=== PATIENT | female | born 1935 | race Caucasian/White ===

== ENCOUNTER 2016-11-10 08:45 | Emergency (ER) | payer MEDICARE ==
[~2016-11-10 08:45] MED LIST: Sodium Chloride 0.9% 1,000 ML BAG ONE; Sodium Chloride 0.9% 100 ML BAG ONE
[2016-11-10 10:13] LABS: INR-International Normal Ratio 1.1; PTT 26.5 SEC (22.9-36.1); Prothrombin Time 14.7 SEC (12.0-14.7)
[2016-11-10 10:16] LABS: #Lymphocytes 0.6 thou/uL (1.20-3.40); #Monocytes 0.4 thou/uL (0.11-0.59); #Neutrophils 6.6 thou/uL (1.40-6.50); %Basophils 0.3 % (0.0-1.0); %Eosinophils 0.4 % (0.0-10.0); %Lymphocytes 8.4 % (21.0-51.0); Hemoglobin 8.4 g/dL (12.0-16.0); Mean Corpuscular HGB CONC 31.5 g/dL (32.0-36.0); Mean Corpuscular Hemoglobin 31.1 pg (27.0-31.0); Mean Corpuscular Volume 98.6 fl (81.0-99.0); Mean Platelet Volume 6.3 fL (7.4-10.4); Platelet Count 157 thou/uL (130-400); RBC Distribution Width 17.4 % (11.5-14.5); Red Blood Cell (RBC) Count 2.69 mill/uL (4.20-5.40); White Blood Cell (WBC) Count 7.7 thou/uL (4.8-10.8)
[2016-11-10 10:17] LABS: ALT (SGPT) 56 U/L (0-55); AST (SGOT) 27 U/L (5-34); Albumin 3.2 g/dL (3.4-4.8); Alkaline Phosphatase 57 U/L (40-150); Anion Gap 16 mmol/L (10-20); BUN (Urea Nitrogen) 29 mg/dL (9.8-20.1); Bilirubin, Total 0.6 mg/dL (0.2-1.2); Calc. Creatinine Clearance 0 mL/min (70-130); Carbon Dioxide 28 mmol/L (23-31); Chloride 103 mmol/L (98-107); Estimated GFR-MDRD 21; Globulin 2.7 g/dL (2.4-3.5); Glucose 192 mg/dL (83-110); Potassium 4.8 mmol/L (3.5-5.1); Protein, Total 5.9 g/dL (5.8-8.1); Sodium 142 mmol/L (136-145)
[2016-11-10 10:19] LABS: Blood, Urine Moderate (Negative); Clarity Cloudy (Clear); Glucose, Urine (Dipstick) Negative (Negative); Leukocyte Small (Negative); Nitrite Negative (Negative); Protein, Urine (Dipstick) 100 mg/dL (Neg-Trace); Urobilinogen 0.2 mg/dL (0.2-1.0); pH, Urine 5.5 (5.0-9.0)
[2016-11-10 10:23] LABS: CKMB 2.4 ng/mL (0-6.6); Troponin I Less than 0.010 ng/mL (< 0.028)
[2016-11-10 10:28] LABS: Bilirubin Small (Negative); Icto Negative (Negative); Specific Gravity, Urine 1.029 (1.002-1.036); Squamous Epithelial 0-3 HPF (0-3); Transitional Epithelial 0-3 HPF (0-3); WBC/HPF 21-50 HPF (0-3)
[2016-11-10 10:29] LABS: Bacteria/HPF 4+ HPF (None Seen); Renal Epithelial 0-3 HPF (0-3); Yeast-All Forms Rare HPF (None Seen)
[2016-11-10] MEDS ORDERED: cefTRIAXone\\ROCEPHIN 1 GM VIAL ONE (10:48)
--- NOTE | 2016-11-10 12:27 | ERRECORD ---
[facility] EMERGENCY RECORD HPI WEAK-DIZZY (09:14 LHOD) CHIEF COMPLAINT: Patient presents for evaluation of weakness. HISTORIAN: History provided by patient. TIME COURSE: PT SEEN BY ME HERE ON FOR WEAKNESS. FOUND TO BE ANEMIC, WITH RENAL INSUFFICIENCY. I TRANSFERRED HER TO [facility], WHERE SHE REPORTEDLY RECEIVED A UNIT OF BLOOD AND WAS TAKEN OFF HER ANTI-COAGULANTS. SHE APPEARS MUCH WORSE TODAY. HER DAUGHTER REPORTS SHE IS WORSE AND REQUESTS ADMISSION. ROS (09:16 LHOD) CONSTITUTIONAL: Historian reports fatigue, denies fever, reports weakness. CARDIOVASCULAR: Historian denies chest pain, reports dyspnea on exertion, reports edema. RESPIRATORY: Historian reports shortness of breath. GI: Historian denies abdominal pain, denies vomiting. GENITOURINARY FEMALE: Historian denies dysuria. SKIN: Historian denies rash. NEUROLOGIC: Historian denies headache, DIFFUSELY WEAK. HEMO/LYMPHATIC: Historian reports anemia. NOTES: All systems reviewed, negative except as described above. PAST MEDICAL HISTORY MEDICAL HISTORY: Flu vaccine up to date, Tetanus not up to date, Pneumococcal vaccine up to date, Past medical history includes cardiac history, coronary artery disease, Past medical history includes history of diabetes, Type II, Past medical history includes history of hypertension, which has been treated, Patient is compliant, Past medical history includes pulmonary disease, chronic obstructive pulmonary disease. verified 11/04. (08:58 SCHI) FEMALE SURGICAL HISTORY: Surgical history of appendectomy, Surgical history of carpal tunnel surgery- BILATERAL, Surgical history of cholecystectomy, Surgical history of hysterectomy, Surgical history of orthopedic surgery, LEFT KNEE REPLACEMENT. (08:58 SCHI) PSYCHIATRIC HISTORY: No previous psychiatric history, no history of suicidal ideations, No history of suicide attempts, Notes: DENIES. (08:58 SCHI) SOCIAL HISTORY: Patient is a former tobacco user, smoked cigarettes, Tobacco history notes: SMOKED FOR ABOUT 10 YEARS., Patient drinks every day, less than 5 drinks per day, Patient denies drug use,. (08:58 SCHI) FAMILY HISTORY: Family istory is not significant. (08:58 SCHI) NOTES: Nursing records reviewed. (09:20 LHOD) KNOWN ALLERGIES aspirin codeine sulfate &a-1R&a+25V*p+0X*z2708M*c202B*c15G*c2P*p-0X&a-25V&a+1R Name: Ethan Roach : 1935 F81 MedRec: [id number] AcctNum: [id number] Prepared: Rabia Nov 10, 2016 15:24 by Interface Page 1 of 4 pMD [facility] EMERGENCY RECORD CURRENT MEDICATIONS (08:56 SCHI) amiodarone: TABLET : Strength - 100 mg : ORAL Patient Dose: 200 mg Oral once a day. atorvastatin: TABLET : Strength - 40 mg : ORAL Patient Dose: 20 mg Oral once a day (at bedtime). citalopram: TABLET : Strength - 20 mg : ORAL Patient Dose: 20 mg Oral once a day. estradiol: TABLET : Strength - 0.5 mg : ORAL Patient Dose: 0.5 mg Oral once a day. furosemide: TABLET : Strength - 20 mg : ORAL Patient Dose: 2 tab(s) Oral once a day. Januvia: TABLET : Strength - 100 mg : ORAL Patient Dose: 50 mg Oral once a day. Lyrica: CAPSULE : Strength - 100 mg : ORAL Patient Dose: 50 mg Oral 2 times a day. metFORMIN: TABLET : Strength - 500 mg : ORAL Patient Dose: 2 tab(s) Oral 2 times a day. meTOPROLOL tartrate: TABLET : Strength - 50 mg : ORAL Patient Dose: 1 tab(s) Oral once a day. omeprazole: CAPSULE,DELAYED RELEASE (ENTERIC COATED) : Strength - 20 mg : ORAL Patient Dose: 1 tab(s) Oral once a day. potassium chloride: PACKET (EA) : Strength - 20 mEq : ORAL Patient Dose: 10 mEq Oral once a day. ramipril: CAPSULE : Strength - 10 mg : ORAL Patient Dose: 5 mg Oral once a day. VITAL SIGNS VITAL SIGNS: BP: 132/44, Pulse: 62, Resp: 16, Temp: 97.6 (Tympanic), Pain: 0, O2 sat: 95 on 3L Oxygen, Time: 11/10/2016 08:50. (08:50 SCHI) BP: 134/37, Pulse: 58, Resp: 18, Temp: 97.6 (Rectal), Pain: 0, O2 sat: 100 on Face mask, Time: 11/10/2016 09:49. (09:49 SCHI) BP: 116/40, Pulse: 57, Resp: 18, O2 sat: 96 on 4L Oxygen, Time: 11/10/2016 10:12. (10:12 SCHI) BP: 126/46, Pulse: 60, Resp: 18, Temp: 97.9, Pain: 0, O2 sat: 95 on 4, Time: 11/10/2016 11:08. (11:08 AWAT) PHYSICAL EXAM (09:17 LHOD) &a-1R&a+25V*p+0X*p2660I*c202B*c15G*c2P*p-0X&a-25V&a+1R Name: Ethan Roach : 1935 F81 MedRec: [id number] AcctNum: [id number] Prepared: Rabia Nov 10, 2016 15:24 by Interface Page 2 of 4 pMD [facility] EMERGENCY RECORD CONSTITUTIONAL: Vital signs reviewed, Patient afebrile, Pulse normal, Blood pressure normal, Respiratory rate normal, AWAKE, BUT SOMNOLENT. KNOWS WHERE SHE IS , BUT DOESN'T KNOW DAY OR EXACT DATE WHEN SHE WAS DISCHARGED FROM [facility]. EYES: Pupils equally round and reactive to light, Extraocular muscles intact. ENT: Mouth exam included findings of, mucous membranes dry. RESPIRATORY CHEST: Wheezing present, Rales present. CARDIOVASCULAR: Cardiovascular exam included findings of heart rate regular rate and rhythm. ABDOMEN FEMALE: Abdominal exam included findings of abdomen nontender, Distension present. UPPER EXTREMITY: Upper extremity exam normal. LOWER EXTREMITY: Edema present, to bilateral lower extremities, pitting, +4. NEURO: Neuro exam findings include patient oriented to, person, place, Memory abnormal, poor recent, no focal motor deficits, DIFFUSELY WEAK. SKIN: no rash. EKG INTERPRETATION (09:32 LHOD) 12 LEAD EKG INTERPRETATION: 12 lead EKG interpreted by Emergency Department Physician at time of study, 12 lead EKG shows, sinus bradycardia, Rate (beats per minute): 59, with no ectopics, Compared with previous EKG from, 11/04/2016, UNCHANGED, T waves normal, [place] normal, RBBB. RADIOLOGYINTERPRETATION (09:33 LHOD) CHEST: Films of the chest show, cardiomegaly, severe congestive heart failure, Other findings: BIBASILAR INFILTRATES. MEDICATION ADMINISTRATION SUMMARY Drug Name: Rocephin intravenous, Dose Ordered: 1 g, Route: IV Push, Status: Given, Time: 10:53 11/10/2016, Drug Name: DuoNeb, Dose Ordered: 3 mL, Route: Nebulize, Status: Given, Time: 10:35 11/10/2016, Drug Name: sodium chloride 0.9 % intravenous, Dose Ordered: 100 mL/hr, Route: IV Fluid Infusion, Status: Given, Time: 09:50 11/10/2016, Drug Name: DuoNeb, Dose Ordered: 3 mL, Route: Nebulize, Status: Given, Time: 09:30 11/10/2016, Detailed record available in Medication Service section. DOCTOR NOTES (10:00 LHOD) TEXT: 1000--awaiting lab. 1015--AWAITING LAB. &a-1R&a+25V*p+0X*v1348D*c202B*c15G*c2P*p-0X&a-25V&a+1R Name: Ethan Roach : 1935 F81 MedRec: [id number] AcctNum: [id number] Prepared: Rabia Nov 10, 2016 15:24 by Interface Page 3 of 4 pMD [facility] EMERGENCY RECORD PROBLEM LIST No recorded problems DIAGNOSIS (10:47 LHOD) FINAL: PRIMARY: CONGESTIVE HEART FAILURE, ADDITIONAL: RENAL INSUFFICIENCY, UTI. PRESCRIPTION No recorded prescriptions DISPOSITION PATIENT: Disposition Type: Transfer, Disposition: Transfer to [facility], Condition: Guarded. (10:47 LHOD) Patient left the department. (11:19 AWAT) Martin: AWAT=CHAYO Comer, Kiel LHOD=MD Debi, Miguel STARR=CHAYO Salcido, Charis &a-1R&a+25V*p+0X*l3036G*c202B*c15G*c2P*p-0X&a-25V&a+1R Name: Ethan Roach : 1935 F81 MedRec: [id number] AcctNum: [id number] Prepared: Rabia Nov 10, 2016 15:24 by Interface Page 4 of 4 pMD MTDD
--- NOTE | 2016-11-10 12:30 | PICIS ---
[facility] EMERGENCY RECORD COMMUNICATIONS (09:34 LHOD) COMMUNICATIONS: Notes: 0930--DISCUSSED WITH DAUGHTER. PT APPEARS MUCH MORE ILL THIS TIME. DAUGHTER REPORTS HER MOTHER IS A DO NOT INTUBATE OR CPR, BUT REQUESTS TREATMENT. 1046--DISCUSSED WITH , [facility] EDMD ACCEPTS FOR TRANFSER. TRIAGE (FriNov 10, 2016 08:52 SCHI) TRIAGE NOTES: WEAKNESS, JUST OUT OF THE HOSPITAL 3 DAYS AGO. (FriNov 10, 2016 08:52 SCHI) PATIENT: NAME: Ethan Roach, AGE: 81, GENDER: female, : Cristine 1935, TIME OF GREET: FriNov 10, 2016 08:46, PREFERRED LANGUAGE: Lithuanian, ETHNICITY: Not or , ECODE BILLING MAP: [facility], SSN: [id number], Zip Code: [address], KG WEIGHT: 92.99, PHONE: , , , PERSON ID: [id number], PCP: MD Otero Grover. (FriNov 10, 2016 08:52 SCHI) COMPLAINT: WEAKNESS. (FriNov 10, 2016 08:52 SCHI) ADMISSION: URGENCY: 3 Urgent, ADMISSION SOURCE: Home, TRANSPORT: AMBULANCE - [facility], BED: ED -01. (FriNov 10, 2016 08:52 SCHI) ASSESSMENT: Assessment: ALERT AND ORIENTED X 4, SKIN WARM AND DRY RESP EVEN AND UNLABORED,. (08:58 SCHI) PAIN: No complaint of pain. (08:58 SCHI) SIRS SCORING: Heart Rate 55-109 (0), Temp range 96.8-101.1 (0), respiratory rate 12-24 (0), Mental Status altered: no (0), Infection or Suspected Infection: No. (08:58 SCHI) TRIAGE SCREENING: Patient denies suicidal ideation, Patient denies presence of domestic violence. (08:58 SCHI) PROVIDERS: TRIAGE NURSE: Charis Salcido RN. (FriNov 10, 2016 08:52 SCHI) VITAL SIGNS: BP 132/44, Pulse 62, Resp 16, Temp 97.6, (Tympanic), Pain 0, O2 Sat 95, on 3L Oxygen, Time 11/10/2016 08:50. (08:50 SCHI) PREVIOUS VISIT ALLERGIES: aspirin, codeine sulfate. (Rabia Nov 10, 2016 08:52 SCHI) aspirin, codeine sulfate. (08:58 SCHI) KNOWN ALLERGIES aspirin codeine sulfate CURRENT MEDICATIONS (08:56 SCHI) amiodarone: TABLET : Strength - 100 mg : ORAL Patient Dose: 200 mg Oral once a day. atorvastatin: TABLET : Strength - 40 mg : ORAL Patient Dose: 20 mg Oral once a day (at bedtime). citalopram: TABLET : Strength - 20 mg : ORAL Patient Dose: 20 mg Oral once a day. estradiol: &a-1R&a+25V*p+0X*a7769S*c202B*c15G*c2P*p-0X&a-25V&a+1R Name: Ethan Roach : 1935 F81 MedRec: [id number] AcctNum: [id number] Prepared: Rabia Nov 10, 2016 15:26 by Interface Page 1 of 14 pMD [facility] EMERGENCY RECORD TABLET : Strength - 0.5 mg : ORAL Patient Dose: 0.5 mg Oral once a day. furosemide: TABLET : Strength - 20 mg : ORAL Patient Dose: 2 tab(s) Oral once a day. Januvia: TABLET : Strength - 100 mg : ORAL Patient Dose: 50 mg Oral once a day. Lyrica: CAPSULE : Strength - 100 mg : ORAL Patient Dose: 50 mg Oral 2 times a day. metFORMIN: TABLET : Strength - 500 mg : ORAL Patient Dose: 2 tab(s) Oral 2 times a day. meTOPROLOL tartrate: TABLET : Strength - 50 mg : ORAL Patient Dose: 1 tab(s) Oral once a day. omeprazole: CAPSULE,DELAYED RELEASE (ENTERIC COATED) : Strength - 20 mg : ORAL Patient Dose: 1 tab(s) Oral once a day. potassium chloride: PACKET (EA) : Strength - 20 mEq : ORAL Patient Dose: 10 mEq Oral once a day. ramipril: CAPSULE : Strength - 10 mg : ORAL Patient Dose: 5 mg Oral once a day. VITAL SIGNS VITAL SIGNS: BP: 132/44, Pulse: 62, Resp: 16, Temp: 97.6 (Tympanic), Pain: 0, O2 sat: 95 on 3L Oxygen, Time: 11/10/2016 08:50. (08:50 SCHI) BP: 134/37, Pulse: 58, Resp: 18, Temp: 97.6 (Rectal), Pain: 0, O2 sat: 100 on Face mask, Time: 11/10/2016 09:49. (09:49 SCHI) BP: 116/40, Pulse: 57, Resp: 18, O2 sat: 96 on 4L Oxygen, Time: 11/10/2016 10:12. (10:12 SCHI) BP: 126/46, Pulse: 60, Resp: 18, Temp: 97.9, Pain: 0, O2 sat: 95 on 4, Time: 11/10/2016 11:08. (11:08 AWAT) NURSING ASSESSMENT: FALL RISK (09:53 SCHI) FALL RISK: Bed rest greater than 2 days (5), Use of level of consciousness altering agents with mentation or cognitive changes (3), Sensory deficits (1), Impaired mobility (3), Neurologic diagnosis (3), Elimination problems (3), Total score 18, Fall risk. HENDRICH II FALL RISK: altered elimination(1), Unable to rise without assistance during test(4), Total score 5. NURSING ASSESSMENT: FOCUSED (09:16 SCHI) CONSTITUTIONAL: Patient arrives, via stretcher, via Emergency &a-1R&a+25V*p+0X*m4736B*c202B*c15G*c2P*p-0X&a-25V&a+1R Name: Ethan Roach : 1935 F81 MedRec: [id number] AcctNum: [id number] Prepared: Rabia Nov 10, 2016 15:26 by Interface Page 2 of 14 pMD [facility] EMERGENCY RECORD Medical Services, Unsteady gait, Lift to cart, History obtained from patient, Patient appears, generally ill, Patient cooperative, Patient alert, Oriented to person, place and time, Skin warm, Skin dry, Skin normal in color, Mucous membranes pink, Mucous membranes, dry, Patient is well-groomed, Patient complains of WEAKNESS, SOME SOB, JUST RELEASED FROM HOSPITAL 3 DAYS AGO WITH GI BLEED, PT STATES THAT SHE HAS BEEN EATING BUT JUST TOO WEAK TO DO ANY THING ELSE. NON VERBAL PAIN: Non-verbal pain assessment findings include no non-verbal complaints at rest (0), no non-verbal complaints with movement, no facial grimaces at rest (0), no facial grimaces with movement (0), no bracing at rest (0), no bracing with movement (0), no restlessness at rest (0), no restlessness with movement (0), no rubbing at rest (0), no rubbing with movement (0), no vocal complaints at rest (0), no vocal complaints with movement (0), Result: 0. EYES: Focused eye assessment finding include pupils equally round and reactive to light. NEURO: Focused neuro assessment findings include patient alert, cooperative, No facial droop noted, Speech coherent. GCS: Eye opening: (4) - Spontaneous, Verbal: (5) - Oriented/conversive, Motor: (6) - Obeys commands/Spontaneous. RESPIRATORY: Focused respiratory assessment findings include breath sounds clear, Breath sounds diminished. ABDOMEN: Focused abdominal assessment findings include abdomen soft, non tender. GENITOURINARY FEMALE: Focused genitourinary assessment not applicable. MUSCULOSKELETAL: Focused musculoskeletal assessment findings include normal range of motion, Notes: GENERAL WEAKNESS. LACERATION: Focused laceration assessment not applicable. NOTES: Emotional support needed and given, Patient tolerated procedure well. SAFETY: Side rails up, Cart/Stretcher in lowest position, Family at bedside, Hospital ID band on. NURSING ASSESSMENT: SKIN (09:51 SCHI) CONSTITUTIONAL: Patient arrives, via Emergency Medical Services, History obtained from patient, Patient appears, generally ill. SKIN: Skin assessment findings include skin warm, Skin dry, Skin normal in color, Notes: HAS DRESSINGS TO BOTH SIDES OF SACRAL AREA WITH OPEN AREAS JUST BELOW THAT ARE NOT CURRENTLY COVERED. NURSING PROCEDURE: INSPECTOR ALIGNING (09:16 SCHI) INSPECTOR ALIGNING: Patient placed on security monitor, Patient placed on non-invasive blood pressure monitor, Patient placed on continuous pulse oximetry, Adult/pediatric oxisensor applied. NURSING PROCEDURE: EKG CHART (09:47 SCHI) &a-1R&a+25V*p+0X*i5951R*c202B*c15G*c2P*p-0X&a-25V&a+1R Name: Ethan Roach Mary : 1935 F81 MedRec: [id number] AcctNum: [id number] Prepared: Rabia Nov 10, 2016 15:26 by Interface Page 3 of 14 pMD [facility] EMERGENCY RECORD PATIENT IDENTIFIER: Patient actively involved in identification process, Patient's identity verified by patient stating name, Patient's identity verified by patient stating date. EKG: EKG indicated for complaint of palpitations, 12 lead EKG performed on the left chest, done by VICENTE DOMINGO. NOTES: Emotional support needed and given, Patient tolerated procedure well. SAFETY: Side rails up, Cart/Stretcher in lowest position, Family at bedside, Hospital ID band on. NURSING PROCEDURE: IV (09:16 SCHI) PATIENT IDENITIFIER: Patient actively involved in identification process, Patient's identity verified by patient stating name, Patient's identity verified by patient stating date, Patient's identity verified by hospital ID bracelet. IV SITE 1: IV therapy indicated for hydration, IV therapy indicated for medication administration, IV established, to the left antecubital, using a 20 gauge catheter, in one attempt, IV site prepped with chloraprep, Saline lock established, Flushed with normal saline (mls): 10, Labs drawn at time of placement, labeled in the presence of the patient and sent to lab. NURSING PROCEDURE: NURSE NOTES (09:16 SCHI) NURSES NOTES: Warm blanket given to patient, Notes: PT PLACED IN GOWN. Notes: all times are approximate due to care being provided, then documented. NURSING PROCEDURE: OXYGEN THERAPY (09:19 SCHI) OXYGEN THERAPY: 4L oxygen given, NORMALLY ON 3 L AT HOME O2. NURSING PROCEDURE: RESPIRATORY INTERVENTIONS (09:47 SCHI) PATIENT IDENTIFIER: Patient actively involved in identification process, Patient's identity verified by patient stating name, Patient's identity verified by patient stating date, Patient's identity verified by hospital ID bracelet. RESPIRATORY INTERVENTIONS: Pre-intervention breath sounds diminished, Pre-intervention oxygen saturation 95%, single pulse oximetry reading, Patient given ALBUTEROL with ATROVENT, Single dose nebulizer. NOTES: Emotional support needed and given, Patient tolerated procedure well. NURSING PROCEDURE: TRANSFER (11:08 AWAT) TRANSFER: Reason for transfer need for specialized care, Diagnosis: CHF EXACERBATION, RENAL INSUFFICIENCY, Accepting institution: [facility] ER, Accepting physician: DR BRUNO, Referring physician: DEBI, Transported by urgent ambulance, accompanied by emergency medical services personnel, Report called to receiving &a-1R&a+25V*p+0X*m4157B*c202B*c15G*c2P*p-0X&a-25V&a+1R Name: Ethan Roach : 1935 F81 MedRec: [id number] AcctNum: [id number] Prepared: Rabia Nov 10, 2016 15:26 by Interface Page 4 of 14 pMD [facility] EMERGENCY RECORD facility, HUNTER Terrell RN, Provided opportunity to answer questions, Summary of Care printed, Copy of patient record prepared for receiving facility, Status of patient's valuables documented on chart, Medication reconciliation form prepared and sent to receiving facility, Patient consent for transfer signed, Family member contacted, DAUGHTER- FAYE. BELONGINGS: Belongings sent home with family member, name: FAYE, Notes: CLOTHES REMOVED & BAGGED UP, AND SENT WITH DAUGHTER. EQUIPMENT WITH PATIENT: Equipment with patient at time of transfer security monitor, Equipment with patient at time of transfer IV pump, Saline lock intact and patent at time of transfer. NOTES: Patient tolerated procedure well. SAFETY: Side rails up, Cart/Stretcher in lowest position, Family at bedside, Call light within reach, Hospital ID band on, Physician notified of above findings. VITAL SIGNS: BP: 126, / 46, Pulse: 60, Resp: 18, Temp: 97.9, Pain: 0, O2 sat: 95, on: 4, Time: 1108. NURSING PROCEDURE: URINE COLLECTION (09:47 SCHI) PATIENT IDENTIFIER: Patient actively involved in identification process, Patient's identity verified by patient stating name, Patient's identity verified by hospital ID bracelet, Patient's identity verified by family member. URINE COLLECTION FEMALE: Urine collection indicated to monitor output, Simple coto inserted, using a 16 fr pre-connected catheter, in one attempt, urine daphne in color, Specimen labeled in the presence of the patient and sent to lab. SAFETY: Side rails up, Cart/Stretcher in lowest position, Family at bedside, Hospital ID band on. ORDER DETAILS Order Name: B type Natriuretic Peptide, Status: Active, Time: 09:11 11/10/2016, User: JEAN-PAUL, - Ordered for: MD Carrera Lefayne, - Entered by: MD Carrera Lefayne - Rabia Nov 10, 2016 09:11, - Quantity: 1, Order Name: INSPECTOR ALIGNING ED, Status: Done, Time: 09:17 11/10/2016, User: MAK, - Ordered for: MD Carrera Lefayne, - Entered by: MD Carrera Lefayne - Rabia Nov 10, 2016 09:11, - Quantity: 1, Order Name: Cardiac Profile w/CKMB & Troponin - I, Status: Active, Time: 09:11 11/10/2016, User: JEAN-PAUL, - Ordered for: MD Carrera Lefayne, - Entered by: MD Carrera Lefayne - Rabia Nov 10, 2016 09:11, - Quantity: 1, Order Name: CBC with Differential, Status: Active, Time: 09:11 11/10/2016, User: JEAN-PAUL, - Ordered for: MD Carrera Lefayne, &a-1R&a+25V*p+0X*e2935H*c202B*c15G*c2P*p-0X&a-25V&a+1R Name: Ethan Roach : 1935 F81 MedRec: [id number] AcctNum: [id number] Prepared: Rabia Nov 10, 2016 15:26 by Interface Page 5 of 14 D [facility] EMERGENCY RECORD - Entered by: MD Carrera Lefayne - Rabia Nov 10, 2016 09:11, - Quantity: 1, Order Name: Comprehensive Metabolic Panel, Status: Active, Time: 09:11 11/10/2016, User: JEAN-PAUL, - Ordered for: MD Carrera Lefayne, - Entered by: MD Carrera Lefayne - Rabia Nov 10, 2016 09:11, - Quantity: 1, Order Name: Culture, Urine, Status: Active, Time: 10:40 11/10/2016, User: JEAN-PAUL, - Ordered for: MD Carrera Lefayne, - Entered by: MD Carrera Lefayne - Rabia Nov 10, 2016 10:40, - Quantity: 1, Order Name: EKG 12 Lead in Emergency Room, Status: Active, Time: 09:11 11/10/2016, User: JEAN-PAUL, - Ordered for: MD Carrera Lefayne, - Entered by: MD Carrera Lefayne - Sun Nov 10, 2016 09:11, - Quantity: 1, Order Name: ERRT * Smal Vol Neb Initial Trmt, Status: Active, Time: 09:11 11/10/2016, User: JEAN-PAUL, - Ordered for: MD Carrera Lefayne, - Entered by: MD Carrera Lefayne - Rabia Nov 10, 2016 09:11, - Quantity: 1, Order Name: ERRT Small Vol Neb Sub Trmt, Status: Active, Time: 10:28 11/10/2016, User: JEAN-PAUL, - Ordered for: MD Carrera Lefayne, - Entered by: MD Carrera Lefayne - Sun Nov 10, 2016 10:28, - Quantity: 1, Order Name: COTO CATHETER ED, Status: Done, Time: 09:47 11/10/2016, User: RO, - Ordered for: MD Carrera Lefayne, - Entered by: MD Carrera Lefayne - Raiba Nov 10, 2016 09:13, - Quantity: 1, Order Name: Protime with INR, Status: Active, Time: 09:11 11/10/2016, User: JEAN-PAUL, - Ordered for: MD Carrera Lefayne, - Entered by: MD Carrera Lefayne - Rabia Nov 10, 2016 09:11, - Quantity: 1, Order Name: PTT, Status: Active, Time: 09:11 11/10/2016, User: JEAN-PAUL, - Ordered for: MD Carrera Lefayne, - Entered by: MD Carrera Lefayne - Sun Nov 10, 2016 09:11, - Quantity: 1, Order Name: RECTAL TEMP ED, Status: Done, Time: 09:47 11/10/2016, User: RO, - Ordered for: MD Carrera Lefayne, - Entered by: MD Carrera Lefayne - Sun Nov 10, 2016 09:14, - Quantity: 1, Order Name: SALINE LOCK, Status: Done, Time: 09:17 11/10/2016, User: MAK, - Ordered for: MD Carrera Lefayne, - Entered by: MD Carrera Lefayne - Rabia Nov 10, 2016 09:11, &a-1R&a+25V*p+0X*j0535N*c202B*c15G*c2P*p-0X&a-25V&a+1R Name: Ethan Roach : 1935 F81 MedRec: [id number] AcctNum: [id number] Prepared: Rabia Nov 10, 2016 15:26 by Interface Page 6 of 14 pMD [facility] EMERGENCY RECORD - Quantity: 1, Order Name: Urinalysis with Microscopic, Status: Active, Time: 09:13 11/10/2016, User: JEAN-PAUL, - Ordered for: MD Carrera Lefayne, - Entered by: MD Carrera Lefayne - Rabia Nov 10, 2016 09:13, - Quantity: 1, Order Name: XR Chest 1 View Portable, Status: Active, Time: 09:11 11/10/2016, User: JEAN-PAUL, - Ordered for: MD Carrera Lefayne, - Entered by: MD Carrera Lefayne - Rabia Nov 10, 2016 09:11, - Quantity: 1. MEDICATION ADMINISTRATION SUMMARY Drug Name: Rocephin intravenous, Dose Ordered: 1 g, Route: IV Push, Status: Given, Time: 10:53 11/10/2016, Drug Name: DuoNeb, Dose Ordered: 3 mL, Route: Nebulize, Status: Given, Time: 10:35 11/10/2016, Drug Name: sodium chloride 0.9 % intravenous, Dose Ordered: 100 mL/hr, Route: IV Fluid Infusion, Status: Given, Time: 09:50 11/10/2016, Drug Name: DuoNeb, Dose Ordered: 3 mL, Route: Nebulize, Status: Given, Time: 09:30 11/10/2016, Detailed record available in Medication Service section. MEDICATION SERVICE DuoNeb: Order: DuoNeb (ipratropium bromide/albuterol sulfate) - Dose: 3 mL : Nebulize Ordered by: Miguel Carrera MD Entered by: MD Rabia Littlejohn Nov 10, 2016 09:12 , Acknowledged by: CHAYO Devries Nov 10, 2016 09:17 Documented as given by: CHAYO Mckenna Nov 10, 2016 09:30 Patient, Medication, Dose, Route and Time verified prior to administration. Site: Medication administered via Hand-held nebulizer, With oxygen. DuoNeb: Order: DuoNeb (ipratropium bromide/albuterol sulfate) - Dose: 3 mL : Nebulize Ordered by: Miguel Carrera MD Entered by: MD Rabia Littlejohn Nov 10, 2016 10:28 Documented as given by: CHAYO Devries Nov 10, 2016 10:35 Patient, Medication, Dose, Route and Time verified prior to administration. Amount given: 1 UNIT DOSE, Site: Medication administered via Hand-held nebulizer, With oxygen, Correct patient, time, route, dose and medication confirmed prior to administration, Patient advised of actions and side-effects prior to administration, Allergies confirmed and medications reviewed prior to administration, Administered by AW, Patient in position of comfort, Side rails up, Cart in lowest position, Family at bedside. Rocephin intravenous: Order: Rocephin intravenous (ceftriaxone sodium) - Dose: 1 g : IV Push &a-1R&a+25V*p+0X*p1902S*c202B*c15G*c2P*p-0X&a-25V&a+1R Name: Ethan Roach : 1935 F81 MedRec: [id number] AcctNum: [id number] Prepared: Rabia Nov 10, 2016 15:26 by Interface Page 7 of 14 pMD [facility] EMERGENCY RECORD Ordered by: Miguel Carrera MD Entered by: MD Rabia Littlejohn Nov 10, 2016 10:40 , Acknowledged by: CHAYO Devries Nov 10, 2016 10:48 Documented as given by: CHAYO Devries Nov 10, 2016 10:53 Patient, Medication, Dose, Route and Time verified prior to administration. Amount given: 1 GRAM, IV SITE #1 IVPB or drip, initial infusion, IVPB mixed in: 100ml, Fluid: 0.9NS, via secondary tubing, at 200 ml/hr, Catheter placement confirmed via flush prior to administration, IV site without signs or symptoms of infiltration during medication administration, No swelling during administration, No drainage during administration, IV flushed after administration, Correct patient, time, route, dose and medication confirmed prior to administration, Patient advised of actions and side-effects prior to administration, Allergies confirmed and medications reviewed prior to administration, Administered by AW, Patient in position of comfort, Side rails up, Cart in lowest position, Family at bedside. : Follow Up : Response assessment performed, No signs or symptoms of allergic reaction noted, Site inspection shows, No swelling at administration site, No drainage at administration site, No bleeding at site, No bruising noted at site, _IV SITE #1:_, Medication infusion continued upon transfer from emergency department, on [place] Nov 10, 2016 11:08, 15 minutes, ., Total amount infused: 50ML, Advised not to ambulate without assistance, Patient in position of comfort, Side rails up, Cart in lowest position, Family at bedside. (11:08 AWAT) sodium chloride 0.9 % intravenous: Order: sodium chloride 0.9 % intravenous (0.9 % sodium chloride) - Dose: 100 mL/hr : IV Fluid Infusion Ordered by: Miguel Carrera MD Entered by: Miguel Carrera MD [place] Nov 10, 2016 09:11 Documented as given by: Charis Salcido RN [place] Nov 10, 2016 09:50 Patient, Medication, Dose, Route and Time verified prior to administration. IV SITE #1 IV fluids established for hydration, IV SITE #1 into left antecubital, IV SITE #1 1st bag hung, amount 1 Liter hung, IV SITE #1 Rate of infusion (non-bolus) Infusing at 100 ml/hr, via primary tubing, Catheter placement confirmed via flush prior to administration, IV site without signs or symptoms of infiltration during medication administration, No swelling during administration, No drainage during administration, IV flushed after administration, Correct patient, time, route, dose and medication confirmed prior to administration, Patient advised of actions and side-effects prior to administration, Allergies confirmed and medications reviewed prior to administration. : Follow Up : Response assessment performed, No signs or symptoms of allergic reaction noted, Site inspection shows, No swelling at administration site, No drainage at administration site, No bleeding at site, No bruising noted at site, _IV SITE #1:_, IV fluid infusion continued upon transfer from emergency department, on &a-1R&a+25V*p+0X*m8411I*c202B*c15G*c2P*p-0X&a-25V&a+1R Name: Ethan Roach : 1935 F81 MedRec: [id number] AcctNum: [id number] Prepared: Rabia Nov 10, 2016 15:26 by Interface Page 8 of 14 pMD [facility] EMERGENCY RECORD [place] Nov 10, 2016 11:08, Total fluid hydration time IV site 1 1 hour, 20 minutes, ., Total amount infused: 110ML, Advised not to ambulate without assistance, Patient in position of comfort, Side rails up, Cart in lowest position, Family at bedside. (11:08 AWAT) HPI WEAK-DIZZY (09:14 LHOD) CHIEF COMPLAINT: Patient presents for evaluation of weakness. HISTORIAN: History provided by patient. TIME COURSE: PT SEEN BY ME HERE ON FOR WEAKNESS. FOUND TO BE ANEMIC, WITH RENAL INSUFFICIENCY. I TRANSFERRED HER TO [facility], WHERE SHE REPORTEDLY RECEIVED A UNIT OF BLOOD AND WAS TAKEN OFF HER ANTI-COAGULANTS. SHE APPEARS MUCH WORSE TODAY. HER DAUGHTER REPORTS SHE IS WORSE AND REQUESTS ADMISSION. ROS (09:16 LHOD) CONSTITUTIONAL: Historian reports fatigue, denies fever, reports weakness. CARDIOVASCULAR: Historian denies chest pain, reports dyspnea on exertion, reports edema. RESPIRATORY: Historian reports shortness of breath. GI: Historian denies abdominal pain, denies vomiting. GENITOURINARY FEMALE: Historian denies dysuria. SKIN: Historian denies rash. NEUROLOGIC: Historian denies headache, DIFFUSELY WEAK. HEMO/LYMPHATIC: Historian reports anemia. NOTES: All systems reviewed, negative except as described above. PAST MEDICAL HISTORY MEDICAL HISTORY: Flu vaccine up to date, Tetanus not up to date, Pneumococcal vaccine up to date, Past medical history includes cardiac history, coronary artery disease, Past medical history includes history of diabetes, Type II, Past medical history includes history of hypertension, which has been treated, Patient is compliant, Past medical history includes pulmonary disease, chronic obstructive pulmonary disease. verified 11/04. (08:58 SCHI) FEMALE SURGICAL HISTORY: Surgical history of appendectomy, Surgical history of carpal tunnel surgery- BILATERAL, Surgical history of cholecystectomy, Surgical history of hysterectomy, Surgical history of orthopedic surgery, LEFT KNEE REPLACEMENT. (08:58 SCHI) PSYCHIATRIC HISTORY: No previous psychiatric history, no history of suicidal ideations, No history of suicide attempts, Notes: DENIES. (08:58 SCHI) SOCIAL HISTORY: Patient is a former tobacco user, smoked cigarettes, Tobacco history notes: SMOKED FOR ABOUT 10 YEARS., Patient drinks every day, less than 5 drinks per day, Patient denies drug use,. (08:58 SCHI) FAMILY HISTORY: Family istory is not significant. (08:58 SCHI) NOTES: Nursing records reviewed. (09:20 LHOD) &a-1R&a+25V*p+0X*o4813X*c202B*c15G*c2P*p-0X&a-25V&a+1R Name: Ethan Roach : 1935 F81 MedRec: [id number] AcctNum: [id number] Prepared: Rabia Nov 10, 2016 15:26 by Interface Page 9 of 14 pMD [facility] EMERGENCY RECORD PHYSICAL EXAM (09:17 LHOD) CONSTITUTIONAL: Vital signs reviewed, Patient afebrile, Pulse normal, Blood pressure normal, Respiratory rate normal, AWAKE, BUT SOMNOLENT. KNOWS WHERE SHE IS , BUT DOESN'T KNOW DAY OR EXACT DATE WHEN SHE WAS DISCHARGED FROM [facility]. EYES: Pupils equally round and reactive to light, Extraocular muscles intact. ENT: Mouth exam included findings of, mucous membranes dry. RESPIRATORY CHEST: Wheezing present, Rales present. CARDIOVASCULAR: Cardiovascular exam included findings of heart rate regular rate and rhythm. ABDOMEN FEMALE: Abdominal exam included findings of abdomen nontender, Distension present. UPPER EXTREMITY: Upper extremity exam normal. LOWER EXTREMITY: Edema present, to bilateral lower extremities, pitting, +4. NEURO: Neuro exam findings include patient oriented to, person, place, Memory abnormal, poor recent, no focal motor deficits, DIFFUSELY WEAK. SKIN: no rash. LAB INTERPRETATION (10:18 LHOD) INTERPRETATION: I reviewed the lab results, CBC abnormal, Hemoglobin decreased, Hematocrit decreased, Chemistry abnormal, Glucose elevated, BUN elevated, Creatinine elevated, Cardiac enzymes abnormal, BNP elevated, PT normal, PTT normal, Urinalysis abnormal, positive for leukocytes. EVENTS TRANSFER: Triage to Emergency Main ED -01. (Rabia Nov 10, 2016 08:52 SCHI) Removed from Emergency Main ED -01. (11:19 AWAT) RADIOLOGYINTERPRETATION (09:33 LHOD) CHEST: Films of the chest show, cardiomegaly, severe congestive heart failure, Other findings: BIBASILAR INFILTRATES. EKG INTERPRETATION (09:32 LHOD) 12 LEAD EKG INTERPRETATION: 12 lead EKG interpreted by Emergency Department Physician at time of study, 12 lead EKG shows, sinus bradycardia, Rate (beats per minute): 59, with no ectopics, Compared with previous EKG from, 11/04/2016, UNCHANGED, T waves normal, Seco normal, RBBB. &a-1R&a+25V*p+0X*g1115M*c202B*c15G*c2P*p-0X&a-25V&a+1R Name: Ethan Roach : 1935 F81 MedRec: [id number] AcctNum: [id number] Prepared: Rabia Nov 10, 2016 15:26 by Interface Page 10 of 14 pMD [facility] EMERGENCY RECORD DOCTOR NOTES (10:00 LHOD) TEXT: 1000--awaiting lab. 1015--AWAITING LAB. PROBLEM LIST No recorded problems DIAGNOSIS (10:47 LHOD) FINAL: PRIMARY: CONGESTIVE HEART FAILURE, ADDITIONAL: RENAL INSUFFICIENCY, UTI. DISPOSITION PATIENT: Disposition Type: Transfer, Disposition: Transfer to [facility], Condition: Guarded. (10:47 LHOD) Patient left the department. (11:19 AWAT) PRESCRIPTION No recorded prescriptions IMAGING *EKG: Image captured from scanner. (09:54 SCHI) *MEMORANDUM OF TRANSFER: Image captured from scanner. (10:55 AWAT) EMS TRANSPORT ORDERS: Image captured from scanner. (10:55 AWAT) CONSENTS: Image captured from scanner. (10:55 AWAT) SBARU: Image captured from scanner. (11:15 AWAT) TRANSFER WORKSHEET: Image captured from scanner. (11:15 AWAT) Page 2 added. Image captured from scanner. (11:16 AWAT) *SUPPLY CHARGE SHEET: Image captured from scanner. (11:17 AWAT) ADMIN DIGITAL SIGNATURE: MD Debi, Miguel. (15:20 LHOD) CHAYO Salcido, Charis. (15:21 SCHI) RESULTS LABORATORY: CBC with Differential Collection DT: Rabia Nov 10, 2016 09:42, White Blood Cell (WBC) Count 7.7 thou/uL, Range (4.8-10.8), *Red Blood Cell (RBC) Count 2.69 - L mill/uL, Range (4.20-5.40), *Hemoglobin 8.4 - L g/dL, Range (12.0-16.0), *Hematocrit 26.5 - L %, Range (36.0-47.0), Mean Corpuscular Volume 98.6 fl, Range (81.0-99.0), *Mean Corpuscular Hemoglobin 31.1 - H pg, Range (27.0-31.0), *Mean Corpuscular HGB CONC 31.5 - L g/dL, Range (32.0-36.0), *RBC Distribution Width 17.4 - H %, Range (11.5-14.5), Platelet Count 157 thou/uL, Range (130-400), &a-1R&a+25V*p+0X*b2096U*c202B*c15G*c2P*p-0X&a-25V&a+1R Name: Ethan Roach : 1935 F81 MedRec: [id number] AcctNum: [id number] Prepared: Rabia Nov 10, 2016 15:26 by Interface Page 11 of 14 pMD [facility] EMERGENCY RECORD *Mean Platelet Volume 6.3 - L fL, Range (7.4-10.4), *%Neutrophils 86.0 - H %, Range (42.0-75.0), *%Lymphocytes 8.4 - L %, Range (21.0-51.0), %Monocytes 5.0 %, Range (0.0-10.0), %Eosinophils 0.4 %, Range (0.0-10.0), %Basophils 0.3 %, Range (0.0-1.0), *#Neutrophils 6.6 - H thou/uL, Range (1.40-6.50), *#Lymphocytes 0.6 - L thou/uL, Range (1.20-3.40), #Monocytes 0.4 thou/uL, Range (0.11-0.59), #Eosinphils 0.0 thou/uL, Range (0.0-0.7), #Basophils 0.0 thou/uL, Range (0.0-0.2). (10:18 LHOD) PTT Collection DT: [place]ta Nov 10, 2016 09:42, See comment below , Anticoagulant? NONE Medical Necessity SUSPECT COAGULOPATHY , PTT 26.5 SEC, Range (22.9-36.1). (10:18 LHOD) Protime with INR Collection DT: [place] Nov 10, 2016 09:42, See comment below , Anticoagulant? NONE Medical Necessity SUSPECT COAGULOPATHY , Prothrombin Time 14.7 SEC, Range (12.0-14.7), INR-International Normal Ratio 1.1 , ATTENTION: READ CAREFULLY , The, recommended therapeutic ranges for oral anticoagulant treatments are: , , Low Intensity: 1.5 - 2.0 Moderate Intensity: 2.0, - 3.0 High Intensity (1): 2.5 - 3.5 High, Intensity (2): 3.0 - 4.0 CRITICAL: >, 4.0 . (10:18 LHOD) Comprehensive Metabolic Panel Collection DT: [place] Nov 10, 2016 09:42, Sodium 142 mmol/L, Range (136-145), Potassium 4.8 mmol/L, Range (3.5-5.1), Chloride 103 mmol/L, Range (98-107), Carbon Dioxide 28 mmol/L, Range (23-31), Anion Gap 16 mmol/L, Range (10-20), *BUN (Urea Nitrogen) 29 - H mg/dL, Range (9.8-20.1), *Creatinine 2.19 - H mg/dL, Range (0.6-1.1), Estimated GFR-MDRD 21 , Reference Range for Estimated GFR: Greater than 90, mL/min/1.73 m2 NOTE: The MDRD equation has not been validated for use, with the elderly (over 70 years of age), women, patients with, serious comorbid condition or persons with extremes of &a-1R&a+25V*p+0X*l3769B*c202B*c15G*c2P*p-0X&a-25V&a+1R Name: Ethan Roach : 1935 F81 MedRec: [id number] AcctNum: [id number] Prepared: Rabia Nov 10, 2016 15:26 by Interface Page 12 of 14 pMD [facility] EMERGENCY RECORD body size, muscle, mass, or nutritional status. , *Glucose 192 - H mg/dL, Range (83-110), Calcium 8.0 mg/dL, Range (7.8-10.44), Bilirubin, Total 0.6 mg/dL, Range (0.2-1.2), Protein, Total 5.9 g/dL, Range (5.8-8.1), NOTE: Plasma values are generally 0.3 to 0.5 g/dL higher than serum values, due to the presence of fibrinogen. , *Albumin 3.2 - L g/dL, Range (3.4-4.8), Globulin 2.7 g/dL, Range (2.4-3.5), Alb/Glob Ratio 1.2 g/dL, Range (1.2-2.2), Alkaline Phosphatase 57 U/L, Range (40-150), AST (SGOT) 27 U/L, Range (5-34), *ALT (SGPT) 56 - H U/L, Range (0-55). (10:24 LHOD) B type Natriuretic Peptide Collection DT: Rabia Nov 10, 2016 09:42, *B type Natriuretic Peptide 535.0 - H pg/mL, Range (0-100). (10:28 LHOD) Cardiac Profile w/CKMB & TropI Collection DT: Rabia Nov 10, 2016 09:42, CKMB 2.4 ng/mL, Range (0-6.6), Troponin I Less than 0.010 ng/mL, Range (< 0.028), Reference Range , 0.00 - 0.028 ng/mL Negative 0.029 - 0.29 ng/mL , Indeterminate Greater or Equal to 0.3 ng/mL Strongly suggests CA , . (10:28 LHOD) Urinalysis with Microscopic Collection DT: Rabia Nov 10, 2016 10:27, Color Yellow , Range (Yellow), Clarity Cloudy , Range (Clear), Specific [place], Urine 1.029 , Range (1.002-1.036), pH, Urine 5.5 , Range (5.0-9.0), *Leukocyte Small - H , Range (Negative), Nitrite Negative , Range (Negative), *Protein, Urine (Dipstick) 100 - H mg/dL, Range (Neg-Trace), Glucose, Urine (Dipstick) Negative mg/dL, Range (Negative), Ketone, Urine Negative mg/dL, Range (Negative), Urobilinogen 0.2 mg/dL, Range (0.2-1.0), *Bilirubin Small - H , Range (Negative), CAUTION Urine, Bilirubin has a high incidence of false positive results due to urine color, interference. Interpret results in conjunction with other clinical, findings. , *Blood, Urine Moderate - H , Range (Negative), *RBC/HPF 11-20 - H HPF, Range (0-3), *WBC/HPF 21-50 - H HPF, Range (0-3), Squamous Epithelial 0-3 HPF, Range (0-3), Transitional Epithelial 0-3 HPF, Range (0-3), Renal Epithelial 0-3 HPF, Range (0-3), &a-1R&a+25V*p+0X*t7283B*c202B*c15G*c2P*p-0X&a-25V&a+1R Name: Ethan Roach : 1935 F81 MedRec: [id number] AcctNum: [id number] Prepared: Rabia Nov 10, 2016 15:26 by Interface Page 13 of 14 pMD [facility] EMERGENCY RECORD *Bacteria/HPF 4+ - H HPF, Range (None Seen), Yeast-All Forms Rare HPF, Range (None Seen). (10:39 LHOD) Martin: MAK=CHAYO Comer, Kiel LHOD=MD Debi, Miguel STARR=CHAYO Salcido, Slinda &a-1R&a+25V*p+0X*v7105I*c202B*c15G*c2P*p-0X&a-25V&a+1R Name: Ethan Roach : 1935 F81 MedRec: [id number] AcctNum: [id number] Prepared: Rabia Nov 10, 2016 15:26 by Interface Page 14 of 14 pMD MTDD
--- NOTE | 2016-11-10 14:13 | RAD ---
PORTABLE CHEST HISTORY: Dyspnea. COMPARISON: 11/04/2016 FINDINGS: Heart size is enlarged. Vessels are engorged with increased perihilar lung markings, rodriguez ggesting pulmonary edema type change. Bibasilar lung changes are present. This probably represents some associated effusion with atelectasis. Infiltrate is difficult to exclude. IMPRESSION Cardiomegaly with congestive heart failure type changes. POS: [facility]
== END 2016-11-10 11:08 | disposition short-term general hospital (02) ==
LOC: MADERS 08:45
DX: I11.0 Hypertensive heart disease with heart failure (principal); I50.9 Heart failure, unspecified; N28.9 Disorder of kidney and ureter, unspecified; N39.0 Urinary tract infection, site not specified; I25.10 Atherosclerotic heart disease of native coronary artery without angina pectoris; E11.9 Type 2 diabetes mellitus without complications; J44.9 Chronic obstructive pulmonary disease, unspecified; Z90.49 Acquired absence of other specified parts of digestive tract; Z90.710 Acquired absence of both cervix and uterus; Z87.891 Personal history of nicotine dependence; Z79.84 Long term (current) use of oral hypoglycemic drugs; Z79.899 Other long term (current) drug therapy
CPT/HCPCS: 36415; 51702; 71010; 80053; 81001; 82553; 83880; 84484; 85025; 85610; 85730; 87077; 87086; 87186; 93005; 94640; 96361; 96374; J0696; J7050; J7620

== ENCOUNTER 2016-12-01 10:40 | Emergency (ER) | payer MEDICARE ==
[2016-12-01 11:34] LABS: Prothrombin Time 13.8 SEC (12.0-14.7)
[2016-12-01 11:35] LABS: PTT 26.9 SEC (22.9-36.1)
--- NOTE | 2016-12-01 11:36 | CT ---
CT BRAIN: Date: 12/01/16 HISTORY: Stroke. TECHNIQUE: Noncontrast enhanced CT images of brain obtained from base of skull through the vertex. Brain and amelie ne windows obtained. FINDINGS: Noncontrast enhanced CT images of the brain are unremarkable. No evidence of acute intracranial mass es, hemorrhages, strokes, or contusions seen. Ventricles are of normal size. IMPRESSION: Normal CT brain, except for presence of some deep white matter ischemic changes. POS: [facility]
[2016-12-01 11:38] LABS: #Eosinphils 0.1 thou/uL (0.0-0.7); #Lymphocytes 0.7 thou/uL (1.20-3.40); #Monocytes 0.4 thou/uL (0.11-0.59); #Neutrophils 5.6 thou/uL (1.40-6.50); %Basophils 0.3 % (0.0-1.0); %Eosinophils 1.1 % (0.0-10.0); %Lymphocytes 10.6 % (21.0-51.0); %Monocytes 5.9 % (0.0-10.0); Hemoglobin 8.3 g/dL (12.0-16.0); Mean Corpuscular HGB CONC 32.4 g/dL (32.0-36.0); Mean Corpuscular Hemoglobin 31.6 pg (27.0-31.0); Mean Corpuscular Volume 97.5 fl (81.0-99.0); Mean Platelet Volume 7.9 fL (7.4-10.4); RBC Distribution Width 17.7 % (11.5-14.5); Red Blood Cell (RBC) Count 2.63 mill/uL (4.20-5.40); White Blood Cell (WBC) Count 6.9 thou/uL (4.8-10.8)
[2016-12-01 11:41] LABS: PLT Morphology Comment PLT clumps seen-ADEQ; Platelet Clumps MODERATE; Platelet Count 85 thou/uL (130-400); Platelet Satellitism SLIGHT
--- NOTE | 2016-12-01 11:49 | RAD ---
PORTABLE SUPINE CHEST: Date: 12/01/16 HISTORY: Mental status change. COMPARISON: 11/19/16. FINDINGS: There is cardiomegaly. Mild vascular engorgement. There is opacification of the left lung base obscu ring the left hemidiaphragm. Part of this is due to the cardiomegaly and poor exposure; however, I c annot exclude left basilar atelectasis and/or consolidation. There is also suggestion of associated left effusion obscuring the CP angle. Similar findings were noted previously. IMPRESSION: 1. Cardiomegaly and mild vascular engorgement. 2. Continued opacification of the left lung base as described above. POS: [facility]
[2016-12-01 11:53] LABS: CKMB 1.9 ng/mL (0-6.6); Troponin I 0.011 ng/mL (< 0.028)
[2016-12-01 11:57] LABS: ALT (SGPT) 139 U/L (0-55); AST (SGOT) 100 U/L (5-34); Albumin 3.3 g/dL (3.4-4.8); Alkaline Phosphatase 71 U/L (40-150); Anion Gap 21 mmol/L (10-20); BUN (Urea Nitrogen) 83 mg/dL (9.8-20.1); Bilirubin, Total 0.5 mg/dL (0.2-1.2); CK (CPK) 74 U/L (29-168); Calc. Creatinine Clearance 0 mL/min (70-130); Calcium 8.7 mg/dL (7.8-10.44); Carbon Dioxide 31 mmol/L (23-31); Chloride 91 mmol/L (98-107); Estimated GFR-MDRD 11; Globulin 2.6 g/dL (2.4-3.5); Glucose 137 mg/dL (83-110); Potassium 3.4 mmol/L (3.5-5.1); Protein, Total 5.9 g/dL (5.8-8.1); Sodium 140 mmol/L (136-145)
[2016-12-01 12:08] LABS: Blood, Urine Moderate (Negative); Clarity Cloudy (Clear); Glucose, Urine (Dipstick) Negative (Negative); Leukocyte Trace (Negative); Nitrite Negative (Negative); Protein, Urine (Dipstick) Negative (Neg-Trace); Urobilinogen 0.2 mg/dL (0.2-1.0)
[2016-12-01 12:13] LABS: Bacteria/HPF 4+ HPF (None Seen); Bilirubin Small (Negative); Squamous Epithelial 0-3 HPF (0-3); Transitional Epithelial 0-3 HPF (0-3)
[2016-12-01] MEDS ORDERED: Fluconazole 100 MG TAB ONE (13:22)
--- NOTE | 2016-12-01 13:48 | ERRECORD ---
[facility] EMERGENCY RECORD HPI CVA (11:47 LLDO) CHIEF COMPLAINT: Patient presents for evaluation of pt brought in from [place] by ems with extremely divergent stories from the ems and the staff of the [place]. when finally sorted out, it seemed the pt has been weak all over and maybe just a bit worse today. exam suggests weankess on both sides for the past week, at least. and i don't really find any localization of neuro sx. pt does not know the month or the city. HISTORIAN: History provided by patient, Additional history obtained from retirement, Additional history obtained from EMS. LOCATION: Symptoms are generalized. QUALITY: Patient is, oriented to person, responsive to verbal stimuli, Clifton coma score, Eye opening: (4) - Spontaneous, Verbal: (4) - Confused/disoriented, Motor: (6) - Obeys commands/Spontaneous, GCS Total: 14, denies pain. SEVERITY: Maximum severity of symptoms moderate, Currently symptoms are moderate. TIME COURSE: Patient unable to describe onset of symptoms, Symptoms are worsening, are constant. ASSOCIATED WITH: No associated symptoms, Denies any other complaints. EXACERBATED BY: Patient's condition exacerbated by nothing. RELIEVED BY: Patient's condition relieved by nothing. RISK FACTORS: Ischemic risk factors, Hemorrhagic risk factors, No subarachnoid hemorrhage risk factors. NIHSS: CVA assessment findings: Level of consciousness : not alert, but arousable by minor stimulation (1), Questions: answers one question correctly (1), Best gaze: partial gaze palsy (1), Motor Left Arm: drift, arm drifts down but does not hit bed or other support (1), Motor Right Arm: drift, arm drifts down but does not hit bed or other support (1), Motor left leg: no effort against gravity, leg falls to bed or support (3), Motor right leg: no effort against gravity, leg falls to bed or support (3), Total score 11. ACUTE STROKE PROTOCOL: Side and/or site verified, Patient identification confirmed, Sterile procedures observed, Verbal consent obtained, Onset of symptoms greater than 7 hours:, NIHSS score 11, Inclusion criteria: Patient's age 18 years or older, No clinical diagnosis of ischemic stroke with a measurable neurologic deficit, Time of symptom onset (when patient was last seen normal) Not well established as less than 3 hours before treatment would begin, Patient tolerated the procedure with difficulty, After procedure, patient is NOT eligible for tPA therapy, Patient is Not eligible for Interventional therapy. ROS CONSTITUTIONAL: Historian reports fatigue, reports &a-1R&a+25V*p+0X*a2674L*c202B*c15G*c2P*p-0X&a-25V&a+1R Name: Ethan Rocah : 1935 F81 MedRec: [id number] AcctNum: [id number] Prepared: Rabia Dec 01, 2016 14:17 by Interface Page 1 of 6 pMD [facility] EMERGENCY RECORD malaise, reports weakness. (12:07 LLDO) EYES: Negative eye review of systems, Historian denies eye pain, denies eye redness, denies eye discharge. (12:15 LLDO) ENT: Negative ears, nose, throat review of systems, Historian denies epistaxis, denies rhinorrhea, denies sinus pain, denies sore throat. (12:15 LLDO) CARDIOVASCULAR: Negative cardiovascular review of systems, Historian denies chest pain, no radiation, Historian denies diaphoresis, denies syncope. (12:15 LLDO) RESPIRATORY: Negative respiratory review of systems, Historian denies cough, denies shortness of breath, denies sputum. (12:15 LLDO) GI: Negative gastrointestinal review of systems, Historian denies abdominal pain, denies constipation, denies diarrhea, denies nausea, denies vomiting. (12:15 LLDO) GENITOURINARY FEMALE: Negative genitourinary review of systems, Historian denies dysuria, denies frequency, denies urgency. (12:15 LLDO) MUSCULOSKELETAL: ONLY IN HPI. (12:07 LLDO) SKIN: Negative skin review of systems, Historian denies cellulitis, denies rash, denies skin changes, denies skin lesions. (12:15 LLDO) NEUROLOGIC: Negative neurologic review of systems, Historian denies confusion, denies dizziness, denies focal weakness, denies mental status changes. (12:15 LLDO) HEMO/LYMPHATIC: Normal hematologic/lymphatic system review, Historian denies abnormal blood clotting, denies gum bleeding, denies petechiae. (12:15 LLDO) ALLERGIC/IMMUNOLOGIC: Normal allergy/immunologic system review, Historian denies eczema, denies environmental allergies, denies food allergies. (12:15 LLDO) PSYCHIATRIC: Negative psychiatric review of systems, Historian denies alcohol abuse, denies anxiety, denies depression, denies drug abuse, denies hallucinations. (12:15 LLDO) NOTES: All systems reviewed, negative except as described above. (12:07 LLDO) PAST MEDICAL HISTORY MEDICAL HISTORY: Flu vaccine up to date, Tetanus not up to date, Pneumococcal vaccine up to date, HX- CKD STAGE 3, CHF, WEAKNESS, COPD, DM I, HTN, CAD, A-FIB, HYPOMAGNESEMIA,. (12:55 AWAT) FEMALE SURGICAL HISTORY: Surgical history of appendectomy, Surgical history of carpal tunnel surgery- BILATERAL, Surgical history of cholecystectomy, Surgical history of hysterectomy, Surgical history of orthopedic surgery, LEFT KNEE REPLACEMENT. (12:55 AWAT) PSYCHIATRIC HISTORY: ANXIETY. (12:55 AWAT) SOCIAL HISTORY: Patient is a former tobacco user, smoked cigarettes, Tobacco history notes: SMOKED FOR ABOUT 10 YEARS., Patient drinks every day, less than 5 drinks per day, Patient denies &a-1R&a+25V*p+0X*a0856U*c202B*c15G*c2P*p-0X&a-25V&a+1R Name: Ethan Roach : 1935 F81 MedRec: [id number] AcctNum: [id number] Prepared: Rabia Dec 01, 2016 14:17 by Interface Page 2 of 6 pMD [facility] EMERGENCY RECORD drug use,. (12:55 AWAT) FAMILY HISTORY: Family istory is not significant. (12:55 AWAT) NOTES: Nursing records reviewed, Agree with nursing records, Medication list reviewed. (12:10 LLDO) KNOWN ALLERGIES aspirin codeine (Unconfirmed): Reaction: throat swelling codeine sulfate CURRENT MEDICATIONS atorvastatin: TABLET : Strength - 40 mg : ORAL Patient Dose: 20 mg Oral once a day (at bedtime). (12:14 JPER) furosemide: TABLET : Strength - 20 mg : ORAL Patient Dose: 2 tab(s) Oral once a day. (12:14 JPER) Lyrica: CAPSULE : Strength - 100 mg : ORAL Patient Dose: 50 mg Oral 2 times a day. (12:14 JPER) meTOPROLOL tartrate: TABLET : Strength - 50 mg : ORAL Patient Dose: 1 tab(s) Oral once a day. (12:14 JPER) Apresoline: TABLET : Strength - 10 mg : ORAL Patient Dose: 25 mg Oral 2 times a day (before meals). (12:15 JPER) CeleXA: TABLET : Strength - 20 mg : ORAL Patient Dose: once a day (in the morning). (12:15 JPER) omeprazole: CAPSULE,DELAYED RELEASE (ENTERIC COATED) : Strength - 20 mg : ORAL Patient Dose: once a day (in the morning). (12:15 JPER) DuoNeb: AMPUL FOR NEBULIZATION (ML) : Strength - 0.5 mg-3 mg (2.5 mg base)/3 mL : INHALATION Patient Dose: every 4 hours prn. (12:17 JPER) Iron (ferrous sulfate): TABLET : Strength - 325 mg (65 mg iron) : ORAL Patient Dose: mg Oral once a day (in the morning). (12:17 JPER) Miralax: POWDER (GRAM) : Strength - 17 gram/dose : ORAL Patient Dose: once a day (in the morning). (12:17 JPER) Spiriva with HandiHaler: CAPSULE, WITH INHALATION DEVICE : Strength - 18 mcg : INHALATION Patient Dose: once a day. (12:17 JPER) Tylenol Extra Strength: &a-1R&a+25V*p+0X*b8856G*c202B*c15G*c2P*p-0X&a-25V&a+1R Name: Trina Roachpilar Hernandez : 1935 F81 MedRec: [id number] AcctNum: [id number] Prepared: Rabia Dec 01, 2016 14:17 by Interface Page 3 of 6 pMD [facility] EMERGENCY RECORD TABLET : Strength - 500 mg : ORAL Patient Dose: 1 g every 6 hours. (12:17 JPER) HumaLOG: VIAL (ML) : Strength - 100 unit/mL : SUBCUTANEOUS Patient Dose: Unknown.SS. (12:17 JPER) Maalox: SUSPENSION, ORAL (FINAL DOSE FORM) : Strength - 200 mg-225 mg/5 mL : ORAL Patient Dose: 30 mL every 6 hours PRN. (12:19 JPER) Robitussin: LIQUID (ML) : Strength - 100 mg/5 mL : ORAL Patient Dose: 200 mg Oral every 6 hours PRN. (12:19 JPER) acetaZOLAMIDE: TABLET : Strength - 250 mg : ORAL Patient Dose: once a day (in the morning). (12:20 JPER) cefdinir: CAPSULE : Strength - 300 mg : ORAL Patient Dose: once a day (in the morning).X 4 DAYS. (12:21 JPER) Multaq: TABLET : Strength - 400 mg : ORAL Patient Dose: 2 times a day (with meals). (12:21 JPER) magnesium chloride: TABLET, DELAYED RELEASE (ENTERIC COATED) : Strength - 64 mg : ORAL Patient Dose: once a day (in the morning). (12:22 JPER) Januvia: TABLET : Strength - 50 mg : ORAL Patient Dose: once a day (in the morning). (12:23 JPER) estradiol: TABLET : Strength - 0.5 mg : ORAL Patient Dose: 0.5 mg Oral once a day. (12:24 JPER) VITAL SIGNS VITAL SIGNS: BP: 97/44, Pulse: 56, Resp: 18, Temp: 98.9 (Tympanic), Pain: 0, O2 sat: 99 on Non Rebreather, Time: 12/01/2016 10:42. (10:42 AWAT) BP: 99/55, Pulse: 55, Resp: 18, O2 sat: 97 on 2L Oxygen, Time: 12/01/2016 11:00. (11:00 AWAT) BP: 92/52, Pulse: 54, Resp: 16, Pain: 0, O2 sat: 96 on 2L Oxygen, Time: 12/01/2016 11:15. (11:15 AWAT) BP: 101/48, Pulse: 60, Resp: 18, Temp: 98.7 (Tympanic), Pain: 0, O2 sat: 96 on 2L Oxygen, Time: 12/01/2016 11:30. (11:30 AWAT) BP: 93/50, Pulse: 54, Resp: 18, Pain: 0, O2 sat: 93 on 2L Oxygen, Time: 12/01/2016 11:45. (11:45 AWAT) BP: 95/56, Pulse: 58, Resp: 16, Pain: 0, O2 sat: 94 on 2L Oxygen, Time: 12/01/2016 12:00. (12:00 AWAT) BP: 104/58, Pulse: 58, Resp: 17, Pain: 0, O2 sat: 94 on 2L Oxygen, Time: 12/01/2016 12:30. (12:30 AWAT) BP: 102/42, Pulse: 53, Resp: 16, Pain: 0, O2 sat: 95 on 2L Oxygen, Time: 12/01/2016 13:00. (13:00 AWAT) &a-1R&a+25V*p+0X*h6709G*c202B*c15G*c2P*p-0X&a-25V&a+1R Name: Ethan Roach : 1935 F81 MedRec: [id number] AcctNum: [id number] Prepared: Rabia Dec 01, 2016 14:17 by Interface Page 4 of 6 pMD [facility] EMERGENCY RECORD BP: 97/32, Pulse: 53, Resp: 17, Pain: 0, O2 sat: 94 on 2L Oxygen, Time: 12/01/2016 13:30. (13:30 AWAT) PHYSICAL EXAM CONSTITUTIONAL: Vital Signs Reviewed, Patient afebrile, Pulse normal, Blood pressure normal bilaterally, Respiratory rate normal, Patient appears, uncomfortable, Patient appears pain free, Patient alert and oriented to person, place and time, Nursing notes reviewed. (12:08 LLDO) HEAD: Head exam normal, Head exam included findings of head atraumatic, normocephalic. (12:15 LLDO) EYES: Eye exam normal, Eye exam included findings of eyelids normal to inspection, Pupils equally round and reactive to light, Extraocular muscles intact. (12:15 LLDO) ENT: ENT exam normal, Ear exam normal, Nose exam normal. (12:15 LLDO) NECK: Neck exam normal, Neck exam included findings of normal range of motion, Trachea midline, no meningeal signs, no tenderness. (12:15 LLDO) RESPIRATORY CHEST: Respiratory and chest exam normal, Respiratory exam included findings of, Chest exam included findings of chest movement symmetrical, Chest expansion equal. (12:15 LLDO) CARDIOVASCULAR: Cardiovascular assessment normal, Cardiovascular exam included findings of heart rate regular rate and rhythm, Heart sounds normal. (12:15 LLDO) ABDOMEN FEMALE: Abdominal exam normal, Abdominal exam included findings of abdomen nontender, Bowel sounds normal, no peritoneal signs. (12:15 LLDO) BACK: Back exam normal, Back exam included findings of normal inspection, range of motion normal. (12:15 LLDO) UPPER EXTREMITY: Upper extremity exam normal, Upper extremity exam included findings of inspection normal, Range of motion normal. (12:15 LLDO) LOWER EXTREMITY: Lower extremity exam normal, Lower extremity exam included findings of inspection normal, Range of motion normal. (12:15 LLDO) NEURO: Neuro exam findings include patient oriented to, person, place, Speech, slightly slurred but seems mostly from general weakness, Gait abnormal, unable to ambulate, not new, Clifton coma scale, Eye opening: (4) - Spontaneous, Verbal: (4) - Confused/disoriented, Motor: (6) - Obeys commands/Spontaneous, Memory abnormal, Cranial nerves intact, Deep tendon reflexes normal, no focal motor deficits, no focal sensory deficits, no cerebellar deficits, no nystagmus, IN HPI. (12:08 LLDO) SKIN: Skin exam normal, Skin exam included findings of skin warm, dry, and normal in color, no rash. (12:15 LLDO) PSYCHIATRIC: Psychiatric exam normal, Psychiatric exam included &a-1R&a+25V*p+0X*v0712K*c202B*c15G*c2P*p-0X&a-25V&a+1R Name: Ethan Roach : 1935 F81 MedRec: [id number] AcctNum: [id number] Prepared: Rabia Dec 01, 2016 14:17 by Interface Page 5 of 6 pMD [facility] EMERGENCY RECORD findings of patient oriented to person place and time, Normal affect. (12:15 LLDO) MEDICATION ADMINISTRATION SUMMARY Drug Name: Macrobid, Dose Ordered: 100 mg, Route: Oral, Status: Given, Time: 13:49 12/01/2016, Drug Name: Diflucan, Dose Ordered: 100 mg, Route: Oral, Status: Given, Time: 13:21 12/01/2016, Detailed record available in Medication Service section. DOCTOR NOTES (13:41 LLDO) TEXT: talked to pcp who suggested transfer d.t. host of complex problems. [facility]. PROBLEM LIST No recorded problems DIAGNOSIS (13:24 LLDO) FINAL: PRIMARY: Altered mental status, ADDITIONAL: ANEMIA UNSPECIFIED, CANDIDIASIS OF VULVA AND VAGINA, CHF, Chronic renal failure, MUSCLE WEAKNESS GENERALIZED, UTI SITE NOT SPECIFIED. PRESCRIPTION No recorded prescriptions DISPOSITION PATIENT: Disposition Type: Transfer, Disposition: Transfer to [facility]. (13:24 LLDO) Patient left the department. (14:10 AWAT) Martin: AWAT=CHAYO Comer, Kiel JPER=CHAYO Nguyen, Cathy LLDO=MD Claire, Desean &a-1R&a+25V*p+0X*n5965D*c202B*c15G*c2P*p-0X&a-25V&a+1R Name: Ethan Roach : 1935 F81 MedRec: [id number] AcctNum: [id number] Prepared: Rabia Dec 01, 2016 14:17 by Interface Page 6 of 6 pMD MTDD
[2016-12-01] MEDS ORDERED: Nitrofurantoin Monohyd/M-Cryst 100 MG CAP ONE (13:49)
--- NOTE | 2016-12-01 13:54 | PICIS ---
[facility] EMERGENCY RECORD COMMUNICATIONS (13:33 AWAT) COMMUNICATIONS: Notes: DR KAYE AT [facility] IN [place] ACCEPTS PT FOR TRANSFER AT THIS TIME. TRIAGE (FriDec 01, 2016 10:49 AWAT) TRIAGE NOTES: FROM NH WITH RIGHT SIDE WEAKNESS FOR PAST FEW DAYS PER NH,,,, LEFT SIDE WEAKNESS OF THIS AM PER EMS, UNKNOWN STORY TO BE EXACT... PT IS WEAK- BILATERALLY... NO UNILATERAL DEFICITS NOTED AT THIS TIME.... AMBIKA. (FriDec 01, 2016 10:49 AWAT) PATIENT: NAME: Ethan Roach, AGE: 81, GENDER: female, : Fri1935, TIME OF GREET: FriDec 01, 2016 10:41, PREFERRED LANGUAGE: Greenlandic, ETHNICITY: Not or , ECODE BILLING MAP: [facility], SSN: [id number], Zip Code: [address], KG WEIGHT: 99.79 (est.), PHONE: , , , PERSON ID: [id number]. (FriDec 01, 2016 10:49 AWAT) COMPLAINT: LT SIDE WEAKNESS. (FriDec 01, 2016 10:49 AWAT) ADMISSION: URGENCY: 3 Urgent, ADMISSION SOURCE: Group Home, TRANSPORT: AMBULANCE - [facility], BED: TRIAGE. (FriDec 01, 2016 10:49 AWAT) SIRS SCORING: Heart Rate 55-109 (0), Temp range 96.8-101.1 (0), respiratory rate 12-24 (0), UNKNOWN LABS & BASELINE MENTAL STATUS. (12:55 AWAT) TREATMENTS IN PROGRESS: Saline Lock, Site: LAC, Gauge: 18, IV: Other, See EMS Record, Patient on oxygen, via mask, Percent O2 =100. (12:55 AWAT) PROVIDERS: TRIAGE NURSE: Kiel Comer RN. (FriDec 01, 2016 10:49 AWAT) PREVIOUS VISIT ALLERGIES: aspirin, codeine sulfate. (FriDec 01, 2016 10:49 AWAT) aspirin, codeine sulfate. (12:55 AWAT) KNOWN ALLERGIES aspirin codeine (Unconfirmed): Reaction: throat swelling codeine sulfate CURRENT MEDICATIONS atorvastatin: TABLET : Strength - 40 mg : ORAL Patient Dose: 20 mg Oral once a day (at bedtime). (12:14 JPER) furosemide: TABLET : Strength - 20 mg : ORAL Patient Dose: 2 tab(s) Oral once a day. (12:14 JPER) Lyrica: CAPSULE : Strength - 100 mg : ORAL Patient Dose: 50 mg Oral 2 times a day. (12:14 JPER) meTOPROLOL tartrate: &a-1R&a+25V*p+0X*x4467V*c202B*c15G*c2P*p-0X&a-25V&a+1R Name: Ethan Roach : 1935 F81 MedRec: [id number] AcctNum: [id number] Prepared: Rabia Dec 01, 2016 14:23 by Interface Page 1 of 18 pMD [facility] EMERGENCY RECORD TABLET : Strength - 50 mg : ORAL Patient Dose: 1 tab(s) Oral once a day. (12:14 JPER) Apresoline: TABLET : Strength - 10 mg : ORAL Patient Dose: 25 mg Oral 2 times a day (before meals). (12:15 JPER) CeleXA: TABLET : Strength - 20 mg : ORAL Patient Dose: once a day (in the morning). (12:15 JPER) omeprazole: CAPSULE,DELAYED RELEASE (ENTERIC COATED) : Strength - 20 mg : ORAL Patient Dose: once a day (in the morning). (12:15 JPER) DuoNeb: AMPUL FOR NEBULIZATION (ML) : Strength - 0.5 mg-3 mg (2.5 mg base)/3 mL : INHALATION Patient Dose: every 4 hours prn. (12:17 JPER) Iron (ferrous sulfate): TABLET : Strength - 325 mg (65 mg iron) : ORAL Patient Dose: mg Oral once a day (in the morning). (12:17 JPER) Miralax: POWDER (GRAM) : Strength - 17 gram/dose : ORAL Patient Dose: once a day (in the morning). (12:17 JPER) Spiriva with HandiHaler: CAPSULE, WITH INHALATION DEVICE : Strength - 18 mcg : INHALATION Patient Dose: once a day. (12:17 JPER) Tylenol Extra Strength: TABLET : Strength - 500 mg : ORAL Patient Dose: 1 g every 6 hours. (12:17 JPER) HumaLOG: VIAL (ML) : Strength - 100 unit/mL : SUBCUTANEOUS Patient Dose: Unknown.SS. (12:17 JPER) Maalox: SUSPENSION, ORAL (FINAL DOSE FORM) : Strength - 200 mg-225 mg/5 mL : ORAL Patient Dose: 30 mL every 6 hours PRN. (12:19 JPER) Robitussin: LIQUID (ML) : Strength - 100 mg/5 mL : ORAL Patient Dose: 200 mg Oral every 6 hours PRN. (12:19 JPER) acetaZOLAMIDE: TABLET : Strength - 250 mg : ORAL Patient Dose: once a day (in the morning). (12:20 JPER) cefdinir: CAPSULE : Strength - 300 mg : ORAL Patient Dose: once a day (in the morning).X 4 DAYS. (12:21 JPER) Multaq: TABLET : Strength - 400 mg : ORAL Patient Dose: 2 times a day (with meals). (12:21 JPER) magnesium chloride: &a-1R&a+25V*p+0X*a0037E*c202B*c15G*c2P*p-0X&a-25V&a+1R Name: Ethan Roach : 1935 F81 MedRec: [id number] AcctNum: [id number] Prepared: Rabia Dec 01, 2016 14:23 by Interface Page 2 of 18 pMD [facility] EMERGENCY RECORD TABLET, DELAYED RELEASE (ENTERIC COATED) : Strength - 64 mg : ORAL Patient Dose: once a day (in the morning). (12: JPER) Januvia: TABLET : Strength - 50 mg : ORAL Patient Dose: once a day (in the morning). (12:23 JPER) estradiol: TABLET : Strength - 0.5 mg : ORAL Patient Dose: 0.5 mg Oral once a day. (12:24 JPER) VITAL SIGNS VITAL SIGNS: BP: 97/44, Pulse: 56, Resp: 18, Temp: 98.9 (Tympanic), Pain: 0, O2 sat: 99 on Non Rebreather, Time: 12/01/2016 10:42. (10:42 AWAT) BP: 99/55, Pulse: 55, Resp: 18, O2 sat: 97 on 2L Oxygen, Time: 12/01/2016 11:00. (11:00 AWAT) BP: 92/52, Pulse: 54, Resp: 16, Pain: 0, O2 sat: 96 on 2L Oxygen, Time: 12/01/2016 11:15. (11:15 AWAT) BP: 101/48, Pulse: 60, Resp: 18, Temp: 98.7 (Tympanic), Pain: 0, O2 sat: 96 on 2L Oxygen, Time: 12/01/2016 11:30. (11:30 AWAT) BP: 93/50, Pulse: 54, Resp: 18, Pain: 0, O2 sat: 93 on 2L Oxygen, Time: 12/01/2016 11:45. (11:45 AWAT) BP: 95/56, Pulse: 58, Resp: 16, Pain: 0, O2 sat: 94 on 2L Oxygen, Time: 12/01/2016 12:00. (12:00 AWAT) BP: 104/58, Pulse: 58, Resp: 17, Pain: 0, O2 sat: 94 on 2L Oxygen, Time: 12/01/2016 12:30. (12:30 AWAT) BP: 102/42, Pulse: 53, Resp: 16, Pain: 0, O2 sat: 95 on 2L Oxygen, Time: 12/01/2016 13:00. (13:00 AWAT) BP: 97/32, Pulse: 53, Resp: 17, Pain: 0, O2 sat: 94 on 2L Oxygen, Time: 12/01/2016 13:30. (13:30 AWAT) NURSING ASSESSMENT: CVA ASSESSMENT TOOL (10:49 AWAT) CONSTITUTIONAL: Complex assessment performed, Patient arrives, via Emergency Medical Services, History obtained from, Emergency Medical Services, intermediate record, Patient appears comfortable, Patient cooperative, Patient alert, Patient is, oriented to person, ORIENTED TO PERSON ONLY. SHE CAN TELL ME HER BIRTHDAY, BUT DISORIENTED TO PLACE, TIME, AND EVENT... SPEECH IS CLEAR, BUT PT APPEARS DROWSY & HAS GENERALIZED WEAKNESS..., Skin warm, Skin dry, Skin normal in color, Mucous membranes pink, Mucous membranes moist, Patient complains of LEFT SIDED WEAKNESS PER EMS, RIGHT SIDED WEAKNESS PER NH... PAIN: Patient rates pain as 0 out of 10, DENIES PAIN. CVA ASSESSMENT: CVA assessment findings include onset of symptoms were, Onset of symptoms: APPROX 1 WEEK AGO?, EMS SAYS MAYBE THIS AM PER THE WAY HE RECIEVED INFO.. I CALLED NH BACK, SPOKE WITH JOSH, AND SHE SAYS PT WAS LIKE THIS UPON HER ARRIVAL AT 0600 THIS AM, BUT HER SCRAP WORKER SAYS SHE HAS BEEN WEAK ALL WEEK. ABSOLUTE UNKNOWN TIME OF ONSET- PROBABLY X 1 WEEK..., Pupils equally round and reactive to light, Left pupil 3 mm in size, Right pupil 3 mm in size, Speech normal, Hand grasps equal, Foot press &a-1R&a+25V*p+0X*n8581I*c202B*c15G*c2P*p-0X&a-25V&a+1R Name: Ethan Roach : 1935 F81 MedRec: [id number] AcctNum: [id number] Prepared: Rabia Dec 01, 2016 14:23 by Interface Page 3 of 18 pMD [facility] EMERGENCY RECORD unequal, DOESNT EVEN PRESS WITH EITHER FOOT. APPARENTLY TOO WEAK TO COOPERATE., Upper extremity motor strength, weak on the left, weak on the right, BILATERALLY EQUAL WITH WEAKNESS, Lower extremity motor strength, moderately weak on the left, moderately weak on the right, CAN MOVE TOES ON COMMAND..., no facial numbness, no facial droop, no numbness to upper extremities, no numbness to lower extremities, Clifton coma scale:, Eye opening: (3) To speech, Verbal: (4) - Confused/disoriented, Motor: (6) - Obeys commands/Spontaneous, GCS Total: 13, Notes: DENIES VISUAL PROBLEMS. PT IS DROWSY & WILL OPEN EYES TO MAKE EYE CONTACT WITH ANY VERBAL STIMULI. NIHSS: CVA assessment findings: Level of consciousness : not alert, but arousable by minor stimulation (1), Questions: answers one question correctly (1), Commands: performs both tasks correctly (0), Best gaze: partial gaze palsy (1), Visual: no visual loss (0), Facial palsy: normal symmetrical movement (0), Motor Left Arm: drift, arm drifts down but does not hit bed or other support (1), Motor Right Arm: drift, arm drifts down but does not hit bed or other support (1), Motor left leg: no effort against gravity, leg falls to bed or support (3), Motor right leg: no effort against gravity, leg falls to bed or support (3), Amputation or joint fusion, Sensory: normal, no sensory loss (0), Best language: no aphasia; normal (0), Dysarthria: normal (0), Extinction and Inattention: normal (0), Total score 11. ACUTE STROKE PROTOCOL: Confirm time of onset or last seen normal 11/24/2016 - APPROX, Onset of symptoms is unknown, NIHSS score 11, Stroke team initiated at 12/01/2016 1047, Stroke team response at 12/01/2016 1047, Inclusion criteria: Patient's age 18 years or older, No clinical diagnosis of ischemic stroke with a measurable neurologic deficit, Time of symptom onset (when patient was last seen normal) Not well established as less than 180 minutes (3hours) before treatment would begin, Secondary Survey findings include: No evidence of intracranial hemorrhage on pretreatment evaluation, No recent (3 Months) craniotomy, spinal surgery, or serious head injury, No prior stroke diagnosed in recent 3 months, No history of intracranial hemorrhage, No recent (14 days) major trauma, surgery, delivery, organ biopsy, or puncture of a non compressible vessel, Recent (21 days) GI or bleeding or any other active bleeding, Not currently taking coumadin with PT > 15(PT and INR required), No seizure at onset of stroke, No intracranial neoplasm, arteriovenous malformation or aneurysm, No administration of heparin within 48 hours and elevated PTT at presentation (PTT required), No lumbar puncture in previous 7 days, Onset time greater than or equal to 3 hours, No uncontrolled hypertension at time of treatment (SBP>185 or DBP>110), No rapidly resolving symptoms, NIHSS score less than 22, Not within 14 days of major surgery, Recent gastrointestinal or urinary &a-1R&a+25V*p+0X*q8116F*c202B*c15G*c2P*p-0X&a-25V&a+1R Name: Ethan Roach : 1935 F81 MedRec: [id number] AcctNum: [id number] Prepared: Rabia Dec 01, 2016 14:23 by Interface Page 4 of 18 pMD [facility] EMERGENCY RECORD tract hemorrhage (within previous 21 days), No recent acute myocardial infarction (within previous 3 months), No post myocardial infarction pericarditis, No abnormal blood glucose level (<50 or >300 mg/dl {<2.8 or >22.2mmol/L}), Patient not , Notes: SEE PAPER FORMS FOR FINAL AFTER LAB RESULTS. NOTES: Emotional support needed and given, Patient tolerated procedure well. SAFETY: Side rails up, Cart/Stretcher in lowest position, Call light within reach, Hospital ID band on, Physician notified of above findings. NURSING ASSESSMENT: NEURO (11:00 AWAT) GCS: (6) Obeying command:, (4) Confused conversation:, (3) Eye opening in response to any speech, Result: 13. NIHSS: Total score 11. CONSTITUTIONAL: Complex assessment performed, Patient arrives, via [facility], History obtained from, Emergency Medical Services, intermediate record, Patient appears comfortable, Patient cooperative, Patient alert, Patient is, oriented to person, Skin warm, Skin dry, Skin normal in color, Mucous membranes pink, Mucous membranes moist, Patient complains of SEE TRIAGE NOTE. PAIN: Patient rates pain as 0 out of 10. NEURO: Pupils equally round and reactive to light, Left pupil 3 mm in size, Right pupil 3 mm in size, Able to close eyes, Face symmetrical, Speech normal, no visual changes, no facial droop, no facial numbness, no swelling, Hand grasps equal, Notes: CUSTODIAL REPORTS THAT THEIR SCRAP WORKER SAYS SHE HAS BEEN WEAK FOR APPROX 1 WEEK. THEY SAID THEY JUST NOTED HER SLUMPING TO HER LEFT WHILE SITTING UP THIS AM... UNKNOWN EXCACT TIME OF ONSET OF WEAKNESS, BUT CERTAINLY DOES NOT SHOW SIGNS OF ANY UNILATERAL WEAKNESS NOW. ENT: Ear assessment findings include ear normal to inspection, Nasal assessment findings include nose normal to inspection, Mouth and throat assessment findings include mouth inspection normal. NOTES: Patient tolerated procedure well. SAFETY: Side rails up, Cart/Stretcher in lowest position, Call light within reach, Hospital ID band on, Physician notified of above findings. NURSING PROCEDURE: BEDSIDE TESTING (11:21 JPER) PATIENT IDENTIFIER: Patient's identity verified by patient stating name, Patient's identity verified by hospital ID bracelet. GLUCOSE: Glucose testing indicated for WEAKNESS, Capillary blood sample, Result (mg/dl) 154, Machine number ED. FOLLOW-UP: After procedure, results given to Dr. BABIN. NURSING PROCEDURE: INTAKE AND OUTPUT (14:03 AWAT) INTAKE AND OUTPUT: Oral intake(ml): 110, IV intake(ml): 0, Total Intake (ml): 110ml, Urine output(ml): 1050, Emesis output(ml): 0, Total Output (ml): 1050ml, Grand Total: &a-1R&a+25V*p+0X*m4390C*c202B*c15G*c2P*p-0X&a-25V&a+1R Name: Ethan Roach : 1935 F81 MedRec: [id number] AcctNum: [id number] Prepared: Rabia Dec 01, 2016 14:23 by Interface Page 5 of 18 pMD [facility] EMERGENCY RECORD Output is greater than intake by 940mls, Notes: + 1 LARGE BM. SAFETY: Side rails up, Cart/Stretcher in lowest position, Family at bedside, Call light within reach, Hospital ID band on, Physician notified of above findings. NURSING PROCEDURE: IV (10:49 AWAT) PATIENT IDENITIFIER: Patient actively involved in identification process, Patient's identity verified by patient stating name, Patient's identity verified by EMS/police liaison. IV SITE 1: IV therapy indicated for POSSIBLE CVA, IV established, to the left antecubital, using an 18 gauge catheter, Saline lock established, Notes: PER EMS SALES AGENT PROTECTIVE SERVICE. SITE IS PATENT. FOLLOW-UP SITE 1: After procedure, sterile transparent dressing applied. NOTES: Notes: DONE PER EMS SALES AGENT PROTECTIVE SERVICE. SAFETY: Physician notified of above findings. NURSING PROCEDURE: NURSE NOTES NURSES NOTES: Notes: INCONTINENT BM CLEANED NOW, SKIN CARE GIVEN, MEPILEX BORDER REMOVED FROM SACRUM DUE TO BEING LARGLY SOILED. AALIYAH DIAPER APPLIED, THEN COTO CATH 16 FR INSERTED PER STERILE TECHNIQUE & SECURED TO LEFT LEG WITH COTO ANCHORING DEVICE. DAUGHTER AT BEDSIDE. VSS... (11:45 AWAT) Notes: I ASKED PT'S DAUGHTER ABOUT ADVANCED DIRECTIVES. DAUGHTER VERBALIZED VERY CLEAR WISHES NOT TO HAVE PT ON A VENTILATOR. SHE SAYS HER MOTHER NEVER WANTED THAT. FURTHER DISCUSSION WILL NEED TO BE DONE REGARDING A FULL DNR. DR BABIN NOTIFIED. (12:30 AWAT) NURSING PROCEDURE: OXYGEN THERAPY (10:49 AWAT) PATIENT IDENTIFIER: Patient actively involved in identification process, Patient's identity verified by patient stating name, Patient's identity verified by hospital ID bracelsohail. OXYGEN THERAPY: Oxygen therapy indicated for possible cva, Prior to procedure, breath sounds clear, to bilateral upper lobes, to the right middle lobe, to bilateral lower lobes, 2L oxygen given, via nasal cannula applied, Applied by Continued from EMS by [facility], via nasal cannula. NOTES: Patient tolerated procedure well. SAFETY: Side rails up, Cart/Stretcher in lowest position, Call light within reach, Hospital ID band on, Physician notified of above findings. NURSING PROCEDURE: TRANSFER (14:05 AWAT) TRANSFER: Reason for transfer primary physician request, Reason for transfer need for specialized care, Diagnosis: AMS, CHF, CRF, ANEMIA, UTI, Accepting institution: [facility], Accepting physician: Sara KAYE, Referring physician: Rosanna BABIN, Transported by urgent ambulance, accompanied by emergency medical services personnel, Report called to receiving facility, BEBETO Provided opportunity &a-1R&a+25V*p+0X*h8571C*c202B*c15G*c2P*p-0X&a-25V&a+1R Name: Ethan Roach : 1935 F81 MedRec: [id number] AcctNum: [id number] Prepared: Rabia Dec 01, 2016 14:23 by Interface Page 6 of 18 pMD [facility] EMERGENCY RECORD to answer questions, Summary of Care printed, Copy of patient record prepared for receiving facility, Status of patient's valuables documented on chart, Medication reconciliation form prepared and sent to receiving facility, Patient consent for transfer signed, Family member contacted, DAUGHTER-. BELONGINGS: Notes: PT'S WATCH REMOVED & GIVEN TO DAUGHTER. EQUIPMENT WITH PATIENT: Equipment with patient at time of transfer monitor tech, Saline lock intact and patent at time of transfer. NOTES: Emotional support needed and given, Patient tolerated procedure well. SAFETY: Side rails up, Cart/Stretcher in lowest position, Family at bedside, Call light within reach, Hospital ID band on, Physician notified of above findings. VITAL SIGNS: Time: 1306. NURSING PROCEDURE: TRANSPORT TO TESTS (10:53 AWAT) PATIENT IDENTIFIER: Patient actively involved in identification process, Patient's identity verified by patient stating name, Patient's identity verified by hospital ID bracelet, Patient's identity verified by EMS/police liaison. TRANSPORT TO TESTS: Transport indicated to facilitate diagnosis, Patient transported to CT scan, via cart, Accompanied by x-ray nuclear engineering technician, Accompanied by nurse. FOLLOW-UP: Notes: BACK TO ER ROOM AR 1103. NOTES: Emotional support needed and given, Patient tolerated procedure well. SAFETY: Side rails up, Cart/Stretcher in lowest position, Family at bedside, Call light within reach, Hospital ID band on, Physician notified of above findings. NURSING PROCEDURE: URINE COLLECTION (11:45 AWAT) PATIENT IDENTIFIER: Patient actively involved in identification process, Patient's identity verified by patient stating name, Patient's identity verified by patient stating date, Patient's identity verified by hospital ID bracelet, Patient's identity verified by family member. URINE COLLECTION FEMALE: Urine collection indicated for need clean sample for diagnostics & also to help prebent further skin breakdown., Simple coto inserted, using a 16 fr catheter, in one attempt. NOTES: Patient tolerated procedure well. SAFETY: Side rails up, Cart/Stretcher in lowest position, Family at bedside, Call light within reach, Hospital ID band on, Physician notified of above findings. ORDER DETAILS Order Name: B type Natriuretic Peptide, Status: Active, Time: 10:52 &a-1R&a+25V*p+0X*v9887P*c202B*c15G*c2P*p-0X&a-25V&a+1R Name: Ethan Roach : 1935 F81 MedRec: [id number] AcctNum: [id number] Prepared: Rabia Dec 01, 2016 14:23 by Interface Page 7 of 18 pMD [facility] EMERGENCY RECORD 12/01/2016, User: ANDI, - Ordered for: MD Babin Lloyd, - Entered by: MD Babin Lloyd - Rabia Dec 01, 2016 10:52, - Quantity: 1, Order Name: GEM EXPERT ED, Status: Done, Time: 11:10 12/01/2016, User: AWAT, - Ordered for: MD Babin Lloyd, - Entered by: MD Babin Lloyd - Sun Dec 01, 2016 10:52, - Quantity: 1, Order Name: Cardiac Profile w/CKMB & Troponin - I, Status: Active, Time: 10:52 12/01/2016, User: LLDO, - Ordered for: MD Babin Lloyd, - Entered by: MD Babin Lloyd - Sun Dec 01, 2016 10:52, - Quantity: 1, Order Name: CBC with Differential, Status: Active, Time: 10:52 12/01/2016, User: LLDO, - Ordered for: MD Babin Lloyd, - Entered by: MD Babin Lloyd - Sun Dec 01, 2016 10:52, - Quantity: 1, Order Name: CK (CPK), Status: Active, Time: 10:52 12/01/2016, User: LLDO, - Ordered for: MD Babin Lloyd, - Entered by: MD Babin Lloyd - Sun Dec 01, 2016 10:52, - Quantity: 1, Order Name: Comprehensive Metabolic Panel, Status: Active, Time: 10:52 12/01/2016, User: LLDO, - Ordered for: MD Babin Lloyd, - Entered by: MD Babin Lloyd - Sun Dec 01, 2016 10:52, - Quantity: 1, Order Name: CT Brain WO Con, Status: Active, Time: 00:00 12/01/2016, User: LLDO, - Ordered for: MD Babin Lloyd, - Entered by: MD Babin Lloyd - Sun Dec 01, 2016, - Quantity: 1, Order Name: CT Stroke Protocol, Status: Active, Time: 00:00 12/01/2016, User: LLDO, - Ordered for: MD Babin Lloyd, - Entered by: MD Babin Lloyd - Sun Dec 01, 2016, - Quantity: 1, Order Name: Culture, Urine, Status: Active, Time: 10:52 12/01/2016, User: LLDO, - Ordered for: MD Babin Lloyd, - Entered by: MD Babin Lloyd - Sun Dec 01, 2016 10:52, - Quantity: 1, Order Name: EKG 12 Lead in Emergency Room, Status: Active, Time: 10:52 12/01/2016, User: LLDO, - Ordered for: MD Babin Lloyd, - Entered by: MD Babin Lloyd - Sun Dec 01, 2016 10:52, - Quantity: 1, Order Name: ERRT Oxygen Usage ER, Status: Active, Time: 10:52 &a-1R&a+25V*p+0X*f6342F*c202B*c15G*c2P*p-0X&a-25V&a+1R Name: Ethan Roach : 1935 F81 MedRec: [id number] AcctNum: [id number] Prepared: Rabia Dec 01, 2016 14:23 by Interface Page 8 of 18 pMD [facility] EMERGENCY RECORD 12/01/2016, User: LLDO, - Ordered for: MD Babin Lloyd, - Entered by: MD Babin Lloyd - Sun Dec 01, 2016 10:52, - Quantity: 1, Order Name: ERRT Pulse Oximeter ER, Status: Active, Time: 10:52 12/01/2016, User: LLDO, - Ordered for: MD Babin Lloyd, - Entered by: MD Babin Lloyd - Sun Dec 01, 2016 10:52, - Quantity: 1, Order Name: COTO CATHETER ED, Status: Done, Time: 12:56 12/01/2016, User: AWAT, - Ordered for: MD Babin Lloyd, - Entered by: MD Babin Lloyd - Sun Dec 01, 2016 12:51, - Quantity: 1, Order Name: Protime with INR, Status: Active, Time: 10:52 12/01/2016, User: LLDO, - Ordered for: MD Babin Lloyd, - Entered by: MD Babin Lloyd - Sun Dec 01, 2016 10:52, - Quantity: 1, Order Name: PTT, Status: Active, Time: 10:52 12/01/2016, User: LLDO, - Ordered for: MD Babin Lloyd, - Entered by: MD Babin Lloyd - Sun Dec 01, 2016 10:52, - Quantity: 1, Order Name: SALINE LOCK, Status: Done, Time: 11:10 12/01/2016, User: MAK, - Ordered for: MD Babin Lloyd, - Entered by: MD Babin Lloyd - Sun Dec 01, 2016 10:52, - Quantity: 1, Order Name: Urinalysis w/ Rflx Microscopic, Status: Active, Time: 10:52 12/01/2016, User: ANDI, - Ordered for: MD Babin Lloyd, - Entered by: MD Babin Lloyd - Sun Dec 01, 2016 10:52, - Quantity: 1, Order Name: XR Chest 1 View Portable, Status: Active, Time: 10:52 12/01/2016, User: ANDI, - Ordered for: MD Babin Lloyd, - Entered by: MD Babin Lloyd - Sun Dec 01, 2016 10:52, - Quantity: 1. MEDICATION ADMINISTRATION SUMMARY Drug Name: Macrobid, Dose Ordered: 100 mg, Route: Oral, Status: Given, Time: 13:49 12/01/2016, Drug Name: Diflucan, Dose Ordered: 100 mg, Route: Oral, Status: Given, Time: 13:21 12/01/2016, Detailed record available in Medication Service section. MEDICATION SERVICE Diflucan: Order: Diflucan (fluconazole) - Dose: 100 mg : Oral &a-1R&a+25V*p+0X*j7059H*c202B*c15G*c2P*p-0X&a-25V&a+1R Name: Ethan Roach : 1935 F81 MedRec: [id number] AcctNum: [id number] Prepared: Rabia Dec 01, 2016 14:23 by Interface Page 9 of 18 pMD [facility] EMERGENCY RECORD POTENTIAL SEVERE INTERACTION: CeleXA - Benefits outweigh risks, Patient no longer on medication Schedule: Now Ordered by: Desean Babin MD Entered by: MD Rabia Blank Dec 01, 2016 13:19 Documented as given by: CHAYO Cr Dec 01, 2016 13:21 Patient, Medication, Dose, Route and Time verified prior to administration. Amount given: 100MG, Site: Medication administered P.O., Administered by JIE DOMINGO. Macrobid: Order: Macrobid (nitrofurantoin/nitrofurantoin macrocrystal) - Dose: 100 mg : Oral Schedule: Now Ordered by: Desean Babin MD Entered by: MD Rabia Blank Dec 01, 2016 13:21 Documented as given by: CHAYO Devries Dec 01, 2016 13:49 Patient, Medication, Dose, Route and Time verified prior to administration. Amount given: 100MG, Site: Medication administered P.O., Correct patient, time, route, dose and medication confirmed prior to administration, Patient advised of actions and side-effects prior to administration, Allergies confirmed and medications reviewed prior to administration, Administered by JAYDEN DOMINGO, Patient in position of comfort, Side rails up, Cart in lowest position, Family at bedside. HPI CVA (11:47 LLDO) CHIEF COMPLAINT: Patient presents for evaluation of pt brought in from [place] by ems with extremely divergent stories from the ems and the staff of the [facility]. when finally sorted out, it seemed the pt has been weak all over and maybe just a bit worse today. exam suggests weankess on both sides for the past week, at least. and i don't really find any localization of neuro sx. pt does not know the month or the city. HISTORIAN: History provided by patient, Additional history obtained from intermediate, Additional history obtained from EMS. LOCATION: Symptoms are generalized. QUALITY: Patient is, oriented to person, responsive to verbal stimuli, [place] coma score, Eye opening: (4) - Spontaneous, Verbal: (4) - Confused/disoriented, Motor: (6) - Obeys commands/Spontaneous, GCS Total: 14, denies pain. SEVERITY: Maximum severity of symptoms moderate, Currently symptoms are moderate. TIME COURSE: Patient unable to describe onset of symptoms, Symptoms are worsening, are constant. ASSOCIATED WITH: No associated symptoms, Denies any other complaints. EXACERBATED BY: Patient's condition exacerbated by nothing. &a-1R&a+25V*p+0X*r6922M*c202B*c15G*c2P*p-0X&a-25V&a+1R Name: Ethan Roach : 1935 F81 MedRec: [id number] AcctNum: [id number] Prepared: Rabia Dec 01, 2016 14:23 by Interface Page 10 of 18 pMD [facility] EMERGENCY RECORD RELIEVED BY: Patient's condition relieved by nothing. RISK FACTORS: Ischemic risk factors, Hemorrhagic risk factors, No subarachnoid hemorrhage risk factors. NIHSS: CVA assessment findings: Level of consciousness : not alert, but arousable by minor stimulation (1), Questions: answers one question correctly (1), Best gaze: partial gaze palsy (1), Motor Left Arm: drift, arm drifts down but does not hit bed or other support (1), Motor Right Arm: drift, arm drifts down but does not hit bed or other support (1), Motor left leg: no effort against gravity, leg falls to bed or support (3), Motor right leg: no effort against gravity, leg falls to bed or support (3), Total score 11. ACUTE STROKE PROTOCOL: Side and/or site verified, Patient identification confirmed, Sterile procedures observed, Verbal consent obtained, Onset of symptoms greater than 7 hours:, NIHSS score 11, Inclusion criteria: Patient's age 18 years or older, No clinical diagnosis of ischemic stroke with a measurable neurologic deficit, Time of symptom onset (when patient was last seen normal) Not well established as less than 3 hours before treatment would begin, Patient tolerated the procedure with difficulty, After procedure, patient is NOT eligible for tPA therapy, Patient is Not eligible for Interventional therapy. ROS CONSTITUTIONAL: Historian reports fatigue, reports malaise, reports weakness. (12:07 LLDO) EYES: Negative eye review of systems, Historian denies eye pain, denies eye redness, denies eye discharge. (12:15 LLDO) ENT: Negative ears, nose, throat review of systems, Historian denies epistaxis, denies rhinorrhea, denies sinus pain, denies sore throat. (12:15 LLDO) CARDIOVASCULAR: Negative cardiovascular review of systems, Historian denies chest pain, no radiation, Historian denies diaphoresis, denies syncope. (12:15 LLDO) RESPIRATORY: Negative respiratory review of systems, Historian denies cough, denies shortness of breath, denies sputum. (12:15 LLDO) GI: Negative gastrointestinal review of systems, Historian denies abdominal pain, denies constipation, denies diarrhea, denies nausea, denies vomiting. (12:15 LLDO) GENITOURINARY FEMALE: Negative genitourinary review of systems, Historian denies dysuria, denies frequency, denies urgency. (12:15 LLDO) MUSCULOSKELETAL: ONLY IN HPI. (12:07 LLDO) SKIN: Negative skin review of systems, Historian denies cellulitis, denies rash, denies skin changes, denies skin lesions. (12:15 LLDO) NEUROLOGIC: Negative neurologic review of systems, Historian denies confusion, denies dizziness, denies focal weakness, denies mental status changes. (12:15 LLDO) HEMO/LYMPHATIC: Normal hematologic/lymphatic system review, &a-1R&a+25V*p+0X*n2174V*c202B*c15G*c2P*p-0X&a-25V&a+1R Name: Ethan Roach : 1935 F81 MedRec: [id number] AcctNum: [id number] Prepared: Rabia Dec 01, 2016 14:23 by Interface Page 11 of 18 pMD [facility] EMERGENCY RECORD Historian denies abnormal blood clotting, denies gum bleeding, denies petechiae. (12:15 LLDO) ALLERGIC/IMMUNOLOGIC: Normal allergy/immunologic system review, Historian denies eczema, denies environmental allergies, denies food allergies. (12:15 LLDO) PSYCHIATRIC: Negative psychiatric review of systems, Historian denies alcohol abuse, denies anxiety, denies depression, denies drug abuse, denies hallucinations. (12:15 LLDO) NOTES: All systems reviewed, negative except as described above. (12:07 LLDO) PAST MEDICAL HISTORY MEDICAL HISTORY: Flu vaccine up to date, Tetanus not up to date, Pneumococcal vaccine up to date, HX- CKD STAGE 3, CHF, WEAKNESS, COPD, DM I, HTN, CAD, A-FIB, HYPOMAGNESEMIA,. (12:55 AWAT) FEMALE SURGICAL HISTORY: Surgical history of appendectomy, Surgical history of carpal tunnel surgery- BILATERAL, Surgical history of cholecystectomy, Surgical history of hysterectomy, Surgical history of orthopedic surgery, LEFT KNEE REPLACEMENT. (12:55 AWAT) PSYCHIATRIC HISTORY: ANXIETY. (12:55 AWAT) SOCIAL HISTORY: Patient is a former tobacco user, smoked cigarettes, Tobacco history notes: SMOKED FOR ABOUT 10 YEARS., Patient drinks every day, less than 5 drinks per day, Patient denies drug use,. (12:55 AWAT) FAMILY HISTORY: Family istory is not significant. (12:55 AWAT) NOTES: Nursing records reviewed, Agree with nursing records, Medication list reviewed. (12:10 LLDO) PHYSICAL EXAM CONSTITUTIONAL: Vital Signs Reviewed, Patient afebrile, Pulse normal, Blood pressure normal bilaterally, Respiratory rate normal, Patient appears, uncomfortable, Patient appears pain free, Patient alert and oriented to person, place and time, Nursing notes reviewed. (12:08 LLDO) HEAD: Head exam normal, Head exam included findings of head atraumatic, normocephalic. (12:15 LLDO) EYES: Eye exam normal, Eye exam included findings of eyelids normal to inspection, Pupils equally round and reactive to light, Extraocular muscles intact. (12:15 LLDO) ENT: ENT exam normal, Ear exam normal, Nose exam normal. (12:15 LLDO) NECK: Neck exam normal, Neck exam included findings of normal range of motion, Trachea midline, no meningeal signs, no tenderness. (12:15 LLDO) RESPIRATORY CHEST: Respiratory and chest exam normal, Respiratory exam included findings of, Chest exam included findings of chest movement symmetrical, Chest expansion equal. (12:15 &a-1R&a+25V*p+0X*s4980M*c202B*c15G*c2P*p-0X&a-25V&a+1R Name: Ethan Roach : 1935 F81 MedRec: [id number] AcctNum: [id number] Prepared: Rabia Dec 01, 2016 14:23 by Interface Page 12 of 18 pMD [facility] EMERGENCY RECORD LLDO) CARDIOVASCULAR: Cardiovascular assessment normal, Cardiovascular exam included findings of heart rate regular rate and rhythm, Heart sounds normal. (12:15 LLDO) ABDOMEN FEMALE: Abdominal exam normal, Abdominal exam included findings of abdomen nontender, Bowel sounds normal, no peritoneal signs. (12:15 LLDO) BACK: Back exam normal, Back exam included findings of normal inspection, range of motion normal. (12:15 LLDO) UPPER EXTREMITY: Upper extremity exam normal, Upper extremity exam included findings of inspection normal, Range of motion normal. (12:15 LLDO) LOWER EXTREMITY: Lower extremity exam normal, Lower extremity exam included findings of inspection normal, Range of motion normal. (12:15 LLDO) NEURO: Neuro exam findings include patient oriented to, person, place, Speech, slightly slurred but seems mostly from general weakness, Gait abnormal, unable to ambulate, not new, [place] coma scale, Eye opening: (4) - Spontaneous, Verbal: (4) - Confused/disoriented, Motor: (6) - Obeys commands/Spontaneous, Memory abnormal, Cranial nerves intact, Deep tendon reflexes normal, no focal motor deficits, no focal sensory deficits, no cerebellar deficits, no nystagmus, IN HPI. (12:08 LLDO) SKIN: Skin exam normal, Skin exam included findings of skin warm, dry, and normal in color, no rash. (12:15 LLDO) PSYCHIATRIC: Psychiatric exam normal, Psychiatric exam included findings of patient oriented to person place and time, Normal affect. (12:15 LLDO) EVENTS TRANSFER: Triage to Emergency Triage. (Rabia Dec 01, 2016 10:49 AWAT) Emergency Triage to Main ED -02. (10:49 AWAT) Removed from Emergency Main ED -02. (14:10 AWAT) DOCTOR NOTES (13:41 LLDO) TEXT: talked to pcp who suggested transfer d.t. host of complex problems. accepted by dr kaye for [facility]. PROBLEM LIST No recorded problems DIAGNOSIS (13:24 LLDO) FINAL: PRIMARY: Altered mental status, ADDITIONAL: ANEMIA UNSPECIFIED, CANDIDIASIS OF VULVA AND VAGINA, CHF, Chronic renal failure, MUSCLE WEAKNESS GENERALIZED, UTI SITE NOT SPECIFIED. &a-1R&a+25V*p+0X*f9096U*c202B*c15G*c2P*p-0X&a-25V&a+1R Name: Ethan Roach : 1935 F81 MedRec: [id number] AcctNum: [id number] Prepared: Rabia Dec 01, 2016 14:23 by Interface Page 13 of 18 pMD [facility] EMERGENCY RECORD DISPOSITION PATIENT: Disposition Type: Transfer, Disposition: Transfer to [facility]. (13:24 LLDO) Patient left the department. (14:10 AWAT) PRESCRIPTION No recorded prescriptions IMAGING STROKE PACKET: Image captured from scanner. (12:35 AWAT) Page 2 added. Image captured from scanner. (12:35 AWAT) Page 3 added. Image captured from scanner. (12:35 AWAT) CUSTODIAL NOTES: Image captured from scanner. (12:41 JPER) Page 2 added. Image captured from scanner. (12:41 JPER) Page 3 added. Image captured from scanner. (12:41 JPER) Page 4 added. Image captured from scanner. (12:42 JPER) Page 5 added. Image captured from scanner. (12:42 JPER) Page 6 added. Image captured from scanner. (12:42 JPER) Page 7 added. Image captured from scanner. (12:42 JPER) Page 8 added. Image captured from scanner. (12:42 JPER) Page 9 added. Image captured from scanner. (12:42 JPER) Page 10 added. Image captured from scanner. (12:42 JPER) Page 11 added. Image captured from scanner. (12:42 JPER) Page 12 added. Image captured from scanner. (12:43 JPER) Page 13 added. Image captured from scanner. (12:45 JPER) Page 14 added. Image captured from scanner. (12:46 JPER) Page 15 added. Image captured from scanner. (12:46 JPER) Page 16 added. Image captured from scanner. (12:46 JPER) Page 17 added. Image captured from scanner. (12:46 JPER) Page 18 added. Image captured from scanner. (12:46 JPER) Page 19 added. Image captured from scanner. (12:46 JPER) Page 20 added. Image captured from scanner. (12:46 JPER) Page 21 added. Image captured from scanner. (12:46 JPER) Page 22 added. Image captured from scanner. (12:46 JPER) Page 23 added. Image captured from scanner. (12:47 JPER) Page 24 added. Image captured from scanner. (12:47 JPER) Page 25 added. Image captured from scanner. (12:47 JPER) STROKE PACKET: Page 4 added. Image captured from scanner. (13:14 AWAT) EKG: Image captured from scanner. (13:40 AWAT) STROKE PACKET: Page 5 added. Image captured from scanner. (13:40 AWAT) *MEMORANDUM OF TRANSFER: Image captured from scanner. (13:53 AWAT) EMS TRANSPORT ORDERS: Image captured from scanner. (13:53 AWAT) CONSENTS: Image captured from scanner. (13:53 AWAT) TRANSFER WORKSHEET: Image captured from scanner. (14:09 AWAT) Page 2 added. Image captured from scanner. (14:09 AWAT) &a-1R&a+25V*p+0X*p9958S*c202B*c15G*c2P*p-0X&a-25V&a+1R Name: Ethan Roach : 1935 F81 MedRec: [id number] AcctNum: [id number] Prepared: Rabia Dec 01, 2016 14:23 by Interface Page 14 of 18 pMD [facility] EMERGENCY RECORD ADMIN (13:44 LLDO) DIGITAL SIGNATURE: MD Claire, Desean. MD Claire, Desean. MD Claire, Desean. MD Claire, Desean. MD Claire, Desean. MD Claire, Desean. RESULTS RADIOLOGY: XR Chest 1 View Portable Observe DT: Rabia Dec 01, 2016 10:55, CXRP PORTABLE SUPINE CHEST: Date: 12/01/16 HISTORY: Mental status change. COMPARISON: 11/19/16. FINDINGS: There is cardiomegaly. Mild vascular engorgement. There is opacification of the left lung base obscu ring the left hemidiaphragm. Part of this is due to the cardiomegaly and poor exposure; however, I c annot exclude left basilar atelectasis and/or consolidation. There is also suggestion of associated left effusion obscuring the CP angle. Similar findings were noted previously. IMPRESSION: 1. Cardiomegaly and mild vascular engorgement. 2. Continued opacification of the left lung base as described above. POS: [facility] . (13:32 AWAT) CT Stroke Protocol Observe DT: Rabia Dec 01, 2016 10:55, STROKE CT BRAIN: Date: 12/01/16 HISTORY: Stroke. &a-1R&a+25V*p+0X*b1125B*c202B*c15G*c2P*p-0X&a-25V&a+1R Name: Ethan Roach : 1935 F81 MedRec: [id number] AcctNum: [id number] Prepared: Rabia Dec 01, 2016 14:23 by Interface Page 15 of 18 pMD [facility] EMERGENCY RECORD TECHNIQUE: Noncontrast enhanced CT images of brain obtained from base of skull through the vertex. Brain and amelie ne windows obtained. FINDINGS: Noncontrast enhanced CT images of the brain are unremarkable. No evidence of acute intracranial mass es, hemorrhages, strokes, or contusions seen. Ventricles are of normal size. IMPRESSION: Normal CT brain, except for presence of some deep white matter ischemic changes. POS: [facility] . (13:49 AWAT) LABORATORY: Urine Microscopic Collection DT: Rabia Dec 01, 2016 12:12, See comment below , Comment please do micro , *RBC/HPF 11-20 - H HPF, Range (0-3), *WBC/HPF 11-20 - H HPF, Range (0-3), Squamous Epithelial 0-3 HPF, Range (0-3), Transitional Epithelial 0-3 HPF, Range (0-3), *Renal Epithelial 4-6 - H HPF, Range (0-3), *Bacteria/HPF 4+ - H HPF, Range (None Seen). (12:37 AWAT) Urinalysis w/ Rflx Microscopic Collection DT: Rabia Dec 01, 2016 12:12, See comment below , Comment please do micro , Color Yellow , Range (Yellow), Clarity Cloudy , Range (Clear), Specific [place], Urine 1.020 , Range (1.005-1.030), pH, Urine 5.0 , Range (5.0-9.0), *Leukocyte Trace - H , Range (Negative), Nitrite Negative , Range (Negative), Protein, Urine (Dipstick) Negative mg/dL, Range (Neg-Trace), Glucose, Urine (Dipstick) Negative mg/dL, Range (Negative), Ketone, Urine Negative mg/dL, Range (Negative), Urobilinogen 0.2 mg/dL, Range (0.2-1.0), *Bilirubin Small - H , Range (Negative), CAUTION Urine, Bilirubin has a high incidence of false positive results due to urine color, interference. Interpret results in conjunction with other clinical, findings. , *Blood, Urine Moderate - H , Range (Negative). (12:37 AWAT) CK (CPK) Collection DT: [place] Dec 01, 2016 11:26, CK (CPK) 74 U/L, Range (29-168). (12:37 AWAT) Comprehensive Metabolic Panel Collection DT: [place] Dec 01, 2016 11:26, &a-1R&a+25V*p+0X*p3229B*c202B*c15G*c2P*p-0X&a-25V&a+1R Name: Ethan Roach : 1935 F81 MedRec: [id number] AcctNum: [id number] Prepared: [place] Dec 01, 2016 14:23 by Interface Page 16 of 18 pMD [facility] EMERGENCY RECORD Sodium 140 mmol/L, Range (136-145), *Potassium 3.4 - L mmol/L, Range (3.5-5.1), *Chloride 91 - L mmol/L, Range (98-107), Carbon Dioxide 31 mmol/L, Range (23-31), *Anion Gap 21 - H mmol/L, Range (10-20), *BUN (Urea Nitrogen) 83 - H mg/dL, Range (9.8-20.1), *Creatinine 3.81 - H mg/dL, Range (0.6-1.1), Estimated GFR-MDRD 11 , Reference Range for Estimated GFR: Greater than 90, mL/min/1.73 m2 NOTE: The MDRD equation has not been validated for use, with the elderly (over 70 years of age), women, patients with, serious comorbid condition or persons with extremes of body size, muscle, mass, or nutritional status. , *Glucose 137 - H mg/dL, Range (83-110), Calcium 8.7 mg/dL, Range (7.8-10.44), Bilirubin, Total 0.5 mg/dL, Range (0.2-1.2), Protein, Total 5.9 g/dL, Range (5.8-8.1), NOTE: Plasma values are generally 0.3 to 0.5 g/dL higher than serum values, due to the presence of fibrinogen. , *Albumin 3.3 - L g/dL, Range (3.4-4.8), Globulin 2.6 g/dL, Range (2.4-3.5), Alb/Glob Ratio 1.3 g/dL, Range (1.2-2.2), Alkaline Phosphatase 71 U/L, Range (40-150), *AST (SGOT) 100 - H U/L, Range (5-34), *ALT (SGPT) 139 - H U/L, Range (0-55). (12:37 AWAT) B type Natriuretic Peptide Collection DT: [place] Dec 01, 2016 11:26, *B type Natriuretic Peptide 540.1 - H pg/mL, Range (0-100). (12:37 AWAT) Cardiac Profile w/CKMB & TropI Collection DT: [place] Dec 01, 2016 11:26, CKMB 1.9 ng/mL, Range (0-6.6), Troponin I 0.011 ng/mL, Range (< 0.028), Reference Range , 0.00 - 0.028 ng/mL Negative 0.029 - 0.29 ng/mL , Indeterminate Greater or Equal to 0.3 ng/mL Strongly suggests IA , . (12:37 AWAT) PTT Collection DT: [place] Dec 01, 2016 11:26, See comment below , Anticoagulant? NONE Medical Necessity SUSPECT COAGULOPATHY , PTT 26.9 SEC, Range (22.9-36.1). (12:37 AWAT) Protime with INR Collection DT: [place] Dec 01, 2016 11:26, See comment below , Anticoagulant? NONE Medical Necessity SUSPECT COAGULOPATHY , Prothrombin Time 13.8 SEC, Range (12.0-14.7), INR-International Normal Ratio 1.0 , ATTENTION: READ CAREFULLY , &a-1R&a+25V*p+0X*a1846I*c202B*c15G*c2P*p-0X&a-25V&a+1R Name: Ethan Roach : 1935 F81 MedRec: [id number] AcctNum: [id number] Prepared: Rabia Dec 01, 2016 14:23 by Interface Page 17 of 18 pMD [facility] EMERGENCY RECORD The, recommended therapeutic ranges for oral anticoagulant treatments are: , , Low Intensity: 1.5 - 2.0 Moderate Intensity: 2.0, - 3.0 High Intensity (1): 2.5 - 3.5 High, Intensity (2): 3.0 - 4.0 CRITICAL: >, 4.0 . (12:37 AWAT) CBC with Differential Collection DT: Rabia Dec 01, 2016 11:26, White Blood Cell (WBC) Count 6.9 thou/uL, Range (4.8-10.8), *Red Blood Cell (RBC) Count 2.63 - L mill/uL, Range (4.20-5.40), *Hemoglobin 8.3 - L g/dL, Range (12.0-16.0), *Hematocrit 25.7 - L %, Range (36.0-47.0), Mean Corpuscular Volume 97.5 fl, Range (81.0-99.0), *Mean Corpuscular Hemoglobin 31.6 - H pg, Range (27.0-31.0), Mean Corpuscular HGB CONC 32.4 g/dL, Range (32.0-36.0), *RBC Distribution Width 17.7 - H %, Range (11.5-14.5), *Platelet Count 85 - L thou/uL, Range (130-400), PLT EST 120. PLT CLUMPS NOTED, Mean Platelet Volume 7.9 fL, Range (7.4-10.4), *%Neutrophils 82.0 - H %, Range (42.0-75.0), *%Lymphocytes 10.6 - L %, Range (21.0-51.0), %Monocytes 5.9 %, Range (0.0-10.0), %Eosinophils 1.1 %, Range (0.0-10.0), %Basophils 0.3 %, Range (0.0-1.0), #Neutrophils 5.6 thou/uL, Range (1.40-6.50), *#Lymphocytes 0.7 - L thou/uL, Range (1.20-3.40), #Monocytes 0.4 thou/uL, Range (0.11-0.59), #Eosinphils 0.1 thou/uL, Range (0.0-0.7), #Basophils 0.0 thou/uL, Range (0.0-0.2), Platelet Clumps MODERATE , Platelet Satellitism SLIGHT , PLT Morphology Comment PLT clumps seen-ADEQ , ADEQUATE number of platelet clumps seen on peripheral smear. Unable to, determine count due to platelet clumping. . (12:37 AWAT) Accuchek Collection DT: Rabia Dec 01, 2016 11:27, *Accuc[place]k 154 - H mg/dL, Range (70-110). (12:37 AWAT) Martin: AWAT=CHAYO Comer, Kiel JIMENEZER=CHAYO Nguyen, Cathy LLDO=MD Claire, Desean &a-1R&a+25V*p+0X*n2185J*c202B*c15G*c2P*p-0X&a-25V&a+1R Name: Ethan Roach : 1935 F81 MedRec: [id number] AcctNum: [id number] Prepared: Rabia Dec 01, 2016 14:23 by Interface Page 18 of 18 pMD MTDD
== END 2016-12-01 13:06 | disposition short-term general hospital (02) ==
LOC: MADERS 10:40
DX: D64.9 Anemia, unspecified (principal); R41.82 Altered mental status, unspecified; B37.3 Candidiasis of vulva and vagina; I50.9 Heart failure, unspecified; N39.0 Urinary tract infection, site not specified; M62.81 Muscle weakness (generalized); I12.9 Hypertensive chronic kidney disease with stage 1 through stage 4 chronic kidney disease, or unspecified chronic kidney disease; N18.3 Chronic kidney disease, stage 3 (moderate); E10.9 Type 1 diabetes mellitus without complications; I25.10 Atherosclerotic heart disease of native coronary artery without angina pectoris; I48.91 Unspecified atrial fibrillation; Z87.891 Personal history of nicotine dependence
CPT/HCPCS: 36415; 36416; 51702; 70450; 71010; 80053; 81003; 81015; 82550; 82553; 83880; 84484; 85025; 85610; 85730; 87086; 93005; 94760

== ENCOUNTER 2016-12-19 19:09 | Emergency (ER) | payer MEDICARE ==
[2016-12-19] MEDS ORDERED: Ondansetron HCl/PF 4 MG/2 ML Vial ONE (19:36)
[2016-12-19] MEDS ORDERED: Pantoprazole 40 MG VIAL ONE (19:36)
[2016-12-19 19:48] LABS: INR-International Normal Ratio 1.1; PTT 25.8 SEC (22.9-36.1); Prothrombin Time 14.6 SEC (12.0-14.7)
[2016-12-19 19:55] LABS: #Eosinphils 0.1 thou/uL (0.0-0.7); #Lymphocytes 0.7 thou/uL (1.20-3.40); #Monocytes 0.4 thou/uL (0.11-0.59); %Basophils 0.7 % (0.0-1.0); %Lymphocytes 15.9 % (21.0-51.0); %Monocytes 9.2 % (0.0-10.0); %Neutrophils 72.1 % (42.0-75.0); Anisocytosis MODERATE=16-30 cells (100X) (0-5/hpf); Hypochromia MODERATE=16-30 cells (100X) (0-5/hpf); MDiff Complete? YES; Mean Corpuscular HGB CONC 32.1 g/dL (32.0-36.0); Mean Corpuscular Hemoglobin 30.4 pg (27.0-31.0); Mean Corpuscular Volume 94.6 fl (81.0-99.0); Mean Platelet Volume 8.6 fL (7.4-10.4); PLT Morphology Comment Appears Decreased; Platelet Count 81 thou/uL (130-400); RBC Distribution Width 15.9 % (11.5-14.5); Red Blood Cell (RBC) Count 2.63 mill/uL (4.20-5.40); White Blood Cell (WBC) Count 4.2 thou/uL (4.8-10.8)
[2016-12-19 19:56] LABS: Anion Gap 16 mmol/L (10-20); BUN (Urea Nitrogen) 34 mg/dL (9.8-20.1); Calc. Creatinine Clearance 0 mL/min (70-130); Calcium 7.7 mg/dL (7.8-10.44); Carbon Dioxide 29 mmol/L (23-31); Chloride 99 mmol/L (98-107); Estimated GFR-MDRD 32; Glucose 178 mg/dL (83-110); Sodium 141 mmol/L (136-145)
[2016-12-19] MEDS ORDERED: Potassium Chloride 20 MEQ TAB ONE (20:29)
[2016-12-19] MEDS ORDERED: Fentanyl 100 MCG/2 ML VIAL ONE (20:52)
== END 2016-12-19 20:55 | disposition short-term general hospital (02) ==
LOC: MADERS 19:09
DX: K92.2 Gastrointestinal hemorrhage, unspecified (principal); D50.0 Iron deficiency anemia secondary to blood loss (chronic); I13.0 Hypertensive heart and chronic kidney disease with heart failure and stage 1 through stage 4 chronic kidney disease, or unspecified chronic kidney disease; N18.3 Chronic kidney disease, stage 3 (moderate); I50.9 Heart failure, unspecified; J44.9 Chronic obstructive pulmonary disease, unspecified; E11.9 Type 2 diabetes mellitus without complications; I48.91 Unspecified atrial fibrillation
CPT/HCPCS: 80048; 85025; 85610; 85730; 93005; 94760; 96374; 96375; C9113; J2405; J3010

== ENCOUNTER 2017-01-15 18:45 | Emergency (ER) | payer MEDICARE ==
[~2017-01-15 18:45] MED LIST changes: -Sodium Chloride 0.9% 1,000 ML BAG ONE; -Sodium Chloride 0.9% 100 ML BAG ONE; +Sodium Chloride 0.9% 500 ML BAG ONE
[2017-01-15 19:44] LABS: #Eosinphils 0.2 thou/uL (0.0-0.7); #Lymphocytes 1.1 thou/uL (1.20-3.40); #Monocytes 0.6 thou/uL (0.11-0.59); #Neutrophils 4.3 thou/uL (1.40-6.50); %Basophils 0.7 % (0.0-1.0); %Eosinophils 3.2 % (0.0-10.0); %Lymphocytes 17.4 % (21.0-51.0); %Monocytes 9.1 % (0.0-10.0); %Neutrophils 69.7 % (42.0-75.0); Hemoglobin 8.8 g/dL (12.0-16.0); Mean Corpuscular HGB CONC 32.8 g/dL (32.0-36.0); Mean Corpuscular Hemoglobin 29.4 pg (27.0-31.0); Mean Corpuscular Volume 89.4 fl (81.0-99.0); Mean Platelet Volume 5.9 fL (7.4-10.4); Platelet Count 131 thou/uL (130-400); Red Blood Cell (RBC) Count 2.98 mill/uL (4.20-5.40); White Blood Cell (WBC) Count 6.1 thou/uL (4.8-10.8)
[2017-01-15 20:06] LABS: ALT (SGPT) 16 U/L (0-55); AST (SGOT) 19 U/L (5-34); Albumin 2.7 g/dL (3.4-4.8); Alkaline Phosphatase 97 U/L (40-150); Anion Gap 15 mmol/L (10-20); BUN (Urea Nitrogen) 38 mg/dL (9.8-20.1); Bilirubin, Total 0.4 mg/dL (0.2-1.2); Calc. Creatinine Clearance 0 mL/min (70-130); Calcium 7.8 mg/dL (7.8-10.44); Carbon Dioxide 31 mmol/L (23-31); Chloride 98 mmol/L (98-107); Estimated GFR-MDRD 54; Globulin 2.9 g/dL (2.4-3.5); Glucose 163 mg/dL (83-110); Magnesium 1.4 mg/dL (1.6-2.6); Phosphorus 4.2 mg/dL (2.3-4.7); Protein, Total 5.6 g/dL (5.8-8.1); Sodium 141 mmol/L (136-145)
[2017-01-15 20:09] LABS: Potassium 2.7 mmol/L (3.5-5.1)
--- NOTE | 2017-01-15 20:18 | RAD ---
EXAM: ONE VIEW CHEST 01/15/17 COMPARISON: 12/01/16. HISTORY: Cough. COMPARISON: 12/04/16. FINDINGS: Portable upright chest demonstrates persistent opacification of the lung bases and persistent cardio pulmonary. Pulmonary vessels continue to be prominent. There is no pneumothorax or osseous abnormali ties. IMPRESSION: Congestive heart failure. Continued surveillance. POS: [facility]
[2017-01-15] MEDS ORDERED: Potassium Chloride 20 MEQ/100 ML PREMIX BAG ONE (20:26)
[2017-01-15] MEDS ORDERED: Potassium Chloride 20 MEQ TAB ONE (20:26)
[2017-01-15 21:22] LABS: Bilirubin Negative (Negative); Blood, Urine Large (Negative); Glucose, Urine (Dipstick) Negative (Negative); Leukocyte Large (Negative); Nitrite Positive (Negative); Protein, Urine (Dipstick) 100 mg/dL (Neg-Trace); Specific Gravity, Urine 1.015 (1.005-1.030); Urobilinogen 0.2 mg/dL (0.2-1.0); pH, Urine 5.5 (5.0-9.0)
[2017-01-15 21:26] LABS: Clarity Cloudy (Clear)
[2017-01-15 21:31] LABS: Bacteria/HPF 3+ HPF (None Seen); RBC/HPF GREATER THAN 50-TNTC HPF (0-3)
[2017-01-15] MEDS ORDERED: Sulfameth/Trimethoprim DS 800-160mg TAB ONE (23:47)
== END 2017-01-16 01:13 ==
LOC: MADERS 18:45
DX: E87.6 Hypokalemia (principal); N39.0 Urinary tract infection, site not specified; D64.9 Anemia, unspecified; E11.9 Type 2 diabetes mellitus without complications; I10 Essential (primary) hypertension
CPT/HCPCS: 71010; 80053; 81003; 81015; 83735; 83880; 84100; 85025; 87077; 87086; 87186; 93005; 96365; 96366; J3480; J7050

== ENCOUNTER 2017-09-02 09:31 | Outpatient (CLI) | payer MEDICARE, OTHER | END 2017-09-02 09:32 | disposition home or self-care (01) | LOC: MADULT 09:31 | PROVIDERS: ATTEND Family Medicine | DX: R19.00 Intra-abdominal and pelvic swelling, mass and lump, unspecified site (principal) ==

== ENCOUNTER 2017-09-24 09:40 | Outpatient (CLI) | payer MEDICARE, OTHER ==
--- NOTE | 2017-09-24 14:06 | ULT ---
PELVIC ULTRASOUND: Date: 09-24-17 Comparison: None. History: 81-year-old female who underwent a recent MRI raising question of a pelvic mass. The patient reports a history of total hysterectomy in the past for fibroid disease. Technique: Multiplanar grayscale sonographic imaging of the pelvis is obtained. FINDINGS: The uterus is not visualized. Neither ovary is visualized. The laundry superintendent measures an area of heterogeneous echogencity in the midline/right hemipelvis measuri ng up to 7.0 x 4.8 x 7.0 cm. This finding is of uncertain etiology/significance. This may simply repr esent bowel content, such as stool within a prominent colon. In retrospect, the finding on MRI probab ly represents a stool filled colon. However, as the laundry superintendent documents a solid appearing lesion in the midline/right hemipelvis, a CT examination of the pelvis is advised for full assessment. IMPRESSION: Area of heterogeneous echogenicity in the midline pelvis/right hemipelvis as detailed above. Solid ad nexal mass cannot be excluded and, thus, CT examination is advised with intravenous and oral contrast . Code T POS: [facility]
== END 2017-09-24 09:41 | disposition home or self-care (01) ==
LOC: MADULT 09:40
PROVIDERS: ATTEND Family Medicine
DX: R19.00 Intra-abdominal and pelvic swelling, mass and lump, unspecified site (principal)
CPT/HCPCS: 76856

== ENCOUNTER 2017-11-28 02:43 | Outpatient (CLI) | payer MEDICARE, MEDICAID | END 2017-11-28 02:44 | disposition home or self-care (01) | LOC: MADLABSP 02:43 | PROVIDERS: ATTEND Family Medicine | DX: R50.9 Fever, unspecified (principal) | CPT/HCPCS: 36415 ==